=== PATIENT | female | born 2000 | race Caucasian/White ===

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

== ENCOUNTER 2020-04-05 22:23 | Emergency (ER) | payer MEDICAID, SELFPAY ==
[2020-03-04 11:31] VITALS: BMI 20.5
[2020-04-05] VITALS (7 sets, daily range): BP systolic 118–127; BP diastolic 80; PULSE 107–181; RESP 16–22; TEMP 36.6; O2SAT 100; BMI 21.1
[2020-04-05] MEDS: Adenosine 6 MG/2 ML Syringe IV (22:30)
--- NOTE | 2020-04-05 22:38 | ED.RN ---
Addendum entered by Tracy Boyd 04/08/20 04:51: INITIAL IV WAS #20 PLACED IN RIGHT AC BY Mago CHRISTIAN. 2ND IV WAS 20G IN LEFT AC BY Mago CHRISTIAN. Original Note: PT C/O ARM PAIN WHERE IV IS PLACED. 2 RNS AND MD CHECKED FOR INFILTRATION, NO SIGNS. NEW IV STARTED.
[2020-04-05] MEDS: Adenosine 6 MG/2 ML Syringe 12 MG IV ×2 (22:40→22:43)
--- NOTE | 2020-04-05 22:44 | EKG12_ITS ---
Test Reason : REPEAT Blood Pressure : / mmHG Vent. Rate : 106 BPM Atrial Rate : 106 BPM P-R Int : 176 ms QRS Dur : 084 ms QT Int : 312 ms P-R-T Axes : 058 074 035 degrees QTc Int : 414 ms Poor data quality, interpretation may be adversely affected Sinus tachycardia Otherwise normal ECG Confirmed by SONG GALE, CHARLEY ([id number]), greeting card editor MORENO SHANNON ([id number]) on 04/08/2020 10:08:16 AM Referred By: ABIODUN Confirmed By:CHARLEY ZULETA MD
--- NOTE | 2020-04-05 22:46 | ED.VISSUMM ---
- ER Visit Summary Date of Service: 04/05/20 Chief Complaint: Accelerated heart rate and bladder spasms History of Present Illness: The patient is a 19 F no significant past medical history other than anemia. No significant past surgeries. Patient states that she was having bladder discomfort tonight. And developed accelerated heart rate. No prior history of any heart issues. She is never had SVT. There is no family history of dysrhythmias. She denies being ill. She denies any nausea, vomiting or diarrhea. No fever or chills. No chest pain or shortness of breath. No history of DVT or PE. No recent travel, surgery or immobilization. No hemoptysis. No history of prior clots. States her last menstrual period was in March. No change Physical Examination: Well-appearing 19-year-old vital signs are stable except she is in SVT with a heart rate of 175. Initial pressure is 127/80 her pulse ox 9% on room air. HEENT exam unremarkable. Neck nontender no thyromegaly. No lymphadenopathy. Lungs clear to auscultation bilaterally. Heart tachycardic rate about 175 no murmur. Consistent with SVT on the monitor. Abdomen soft nontender normal bowel sounds no peritoneal signs. Extremities moves all 4. Calves nontender without edema or cords. Back nontender. Neurologically she is awake alert with no focal motor deficit. Skin no rashes. Mildly pale. Test Results: Initial EKG on arrival shows a supraventricular tachycardia rate of 175. CBC shows a white count 8. She is chronically anemic her hemoglobin is 9.2. Electrolytes are normal. Normal creatinine and gap. TSH is normal at 1.2. Urinalysis shows 10-25 red cells 10-25 white cells no epithelial cells no bacteria no nitrates a culture was sent due to her bladder discomfort she will be treated for possible UTI. Serum test is negative. A urine culture was sent. I went over all test results with the patient and her father. On repeat exam at 00 19 a.m. she is doing well. Emergency Department Course and Treatment: Patient appears to have new onset SVT. Right antecubital IV was established by the nurses. Nurses told me it flushed well and darlin well. There was good blood flow. Initially gave her 6 of Adenocard with no response whatsoever. She was then given 12 with Adenocard with no response. She was then telling us it was some mild discomfort and her peripheral IV in the right arm. Currently there is no signs of infiltration it does flush well. But I had him change the IV site to the left arm first dose of Adenocard at 12 mg IV on that side she immediately broke the SVT and now is in a normal sinus rhythm. The IV was removed from the right arm. Patient will be given 1 dose of Bactrim here. Treatment Plan: Bactrim twice daily for 5 days for her UTI. Culture sent. Follow-up with cardiology for SVT. Return if feeling worse. Disposition: dc Impression: Acute SVT Acute UTI This note was generated with [employer] dictation software. It may contain incorrect words, spelling, and punctuation that were not noted in review of the chart prior to signing ED Disposition - Plan for ED Patient: Referrals: Inna Moreno NP-C [NON-STAFF] -
--- NOTE | 2020-04-05 22:57 | EKG12_ITS ---
Test Reason : PALPATAIONS Blood Pressure : / mmHG Vent. Rate : 175 BPM Atrial Rate : 163 BPM P-R Int : 000 ms QRS Dur : 076 ms QT Int : 256 ms P-R-T Axes : 000 064 018 degrees QTc Int : 436 ms Supraventricular tachycardia Otherwise normal ECG Confirmed by SONG GALE, CHARLEY ([id number]), offline editor MORENO SHANNON ([id number]) on 04/08/2020 10:08:43 AM Referred By: ABIODUN Confirmed By:CHARLEY ZULETA MD
[2020-04-05 23:02] LABS: Absolute Lymphocyte Count 2.84 X10^3/uL (0.83-4.51); Absolute Neutrophil Count 4.7 X10^3/uL (2.0-7.7); Basophil# 0.06 X10^3/uL; Basophil% 0.7 % (0-1); Eosinophil# 0.19 X10^3/uL; Eosinophils% 2.2 % (0-5); Hematocrit 31.6 % (37-47); Hemoglobin 9.2 g/dL (12.0-15.0); Lymphocyte # 2.84 X10^3/ul (4.0); Mean Corp Hgb Conc 29.1 g/dL (32-36); Mean Corpuscular Hgb 21.4 pg (27.0-32.0); Mean Corpuscular Volume 73.5 fL (81-99); Mean Platelet Vol. 10.7 fl (6.2-12.0); Monocyte# 0.83 X10^3/uL; Monocyte% 9.7 % (0-10); NRBC Flagged by Analyzer 0 % (0-5); Neutrophil # 4.66 X10^3/uL (2.7-7.7); Neutrophil % 54.2 % (47-70); Platelet Count 241 K/mm3 (150-450); RBC Distribution Width CV 15.9 % (11.6-14.6); RBC Distribution Width SD 41.3 fl (35.1-43.9); White Blood Count 8.6 K/mm3 (4.4-11.0)
[2020-04-05 23:39] LABS: Bacteria 0 SEEN /hpf (None Seen); Mucous, Urine 0 SEEN /hpf (<or=2+)
[2020-04-05 23:48] LABS: Color, Urine Yellow (Yellow); Glucose, Dipstick Normal (Normal); Ketone-Dipstick Negative (Negative); Leukocyte Esterase-Dipstick 500 /ul (Negative); Nitrite-Dipstick Negative (Negative); Occult Blood-Urine 150 /ul (Negative); Protein-Dipstick Negative (Negative); Specific Gravity, Urine 1.015 (1.002-1.030); Urine Bilirubin Dipstick Negative (Negative); Urine Clarity Clear (Clear); Urine Urobilinogen Normal (Normal)
[2020-04-05 23:51] LABS: Internal QC Validated? YES +Cl - CLEAR BKGD; Pregnancy, Serum, hCG Quali. NEGATIVE Negative
[2020-04-05 23:56] LABS: Red Blood Cells-Urine 10-25 SEEN /hpf (0-5); Squamous Epithelial Cells - UA 0-5 SEEN /hpf (5-10); White Blood Cells 10-25 SEEN /hpf (0-5)
[2020-04-06 00:08] LABS: Anion Gap 4 (5-15); BUN 13 mg/dL (7-18); BUN/Creat Ratio 15.3 RATIO (10-20); Calcium,Total 8.9 mg/dL (8.5-10.1); Chloride 111 mmol/L (98-107); Creatinine, Serum 0.85 mg/dL (0.55-1.02); EST Glomerular Filtration Rate 91 mL/min (>60); Est Glom Filt Rate - Afr Amer 110 mL/min (>60); Estimated Creatinine Clearance 91.93 ml/min; Glucose 92 mg/dL (74-106); Potassium 3.5 mmol/L (3.5-5.1); Sodium Level 140 mmol/L (136-145); Thyroid Stim Hormone (TSH) 1.29 uIU/mL (0.358-3.74)
--- NOTE | 2020-04-06 00:21 | DCINST.ED_ITS ---
ED Disposition - Plan for ED Patient: Disposition: Home or Assisted Living Instructions: ED CYSTITIS Female Adult Prescriptions: Smz/Tmp Ds [Bactrim Ds] 1 tab PO BID #10 tab Prescription Printed Referrals: Inna Moreno NP-C [NON-STAFF] - 3-5 Days if not improving Kasandra Danielson MD [STAFF PHYSICIAN] - As soon as possible Additional Instructions: You have a heart rhythm called SVT or supraventricular tachycardia. This can often be treated with either medication or sometimes they can do an ablation where they go in and shocked that area of the heart to prevent this from happening again. You will need to follow-up with cardiology to have that further evaluated. Your urine had white and red blood cells that are consistent with a urinary tract infection. A urine culture was sent. He will be started on the antibiotic Bactrim 1 pill twice a day for the next 5 days. Follow-up with your nurse practitioner if not improving. Make sure you follow- up with generation engineering technologist for your SVT.
[2020-04-06] MEDS: Smz/Tmp Ds Tablet 1 TABLET PO (00:30)
[2020-04-06 00:33] VITALS: BP 105/60; PULSE 90; RESP 18; O2SAT 96
== END 2020-04-06 00:34 | disposition home or self-care (01) ==
PROVIDERS: Emergency Provider Emergency Medicine
DX: I47.1 Supraventricular tachycardia (principal); N39.0 Urinary tract infection, site not specified; F17.200 Nicotine dependence, unspecified, uncomplicated
CPT/HCPCS: 80048; 81001; 84443; 84703; 85025; 87086; 87088; 93005; 96374; 96376; 99285; J7030; A4216; J0153

== ENCOUNTER 2020-06-06 17:57 | Emergency (ER) | payer MEDICAID, SELFPAY ==
[2020-05-11 11:26] VITALS: BMI 20.5
[2020-06-06 17:59] VITALS: BP 122/68; PULSE 91; RESP 18; TEMP 37.1; O2SAT 96; BMI 20.9
--- NOTE | 2020-06-06 18:19 | ED.VIS.GEN ---
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 she has no complaints other than some rhinorrhea eating and drinking well no obvious documented fever Only came to the emergency department because of the issues related to work as above did not know where else to go to get tested Past Medical History - Allergies and Home Meds Allergies/Adverse Reactions: Allergies No Known Allergies Allergy (Verified 06/06/20 17:59) Primary Care Physician: Care Physician,No Primary [Primary Care Provider] - Past Medical History: None Smoking Status: Current every day smoker Review of Systems ENT: Reports: Rhinorrhea Physical Exam Vital Signs/Narrative: Vital Signs Temp Pulse Resp BP Pulse Ox 06/06/20 17:59 98.7 F 91 18 122/68 H 96 General: Well nourished, Well developed, No Acute Distress Head: Normocephalic, Atraumatic Eyes: Perrl, EOMI ENT: Moist mucous membranes, No rhinorrhea Neck: Supple, Nontender Cardiovascular: Regular rate, Regular rhythm, No murmurs Respiratory: No distress, CTA bilaterally, Chest nontender Abdomen: Soft, Nontender, Nondistended, Normal bowel sounds Back: Nontender, Normal Inspection Extremities: Nontender, No edema Skin: Normal color, No rash Neurological: Alert, Oriented x3, Cranial nerves II-XII grossly intact, Normal Strength, Normal Sensation Psychological: Normal affect, Normal Mood Diagnostic/Tx/Re-eval - Medical Decision Making The vital signs are unremarkable patient is afebrile pulse ox is 96% clinically she looks well given all of the above related to the above and work issues we will obtain outpatient coronavirus screening she understands that test is not available for a few days she will self isolate use instructions return for change in symptoms Home stable Final impression URI concern for coronavirus ED Disposition - Plan for ED Patient: Diagnosis: COVID-19 Instructions: ED Bronchitis, No Antibiotic (Adult), Coronavirus Disease 2019 (COVID-19): Caring for Yourself or Others Referrals: Care Physician,No Primary [Primary Care Provider] - Additional Instructions: Follow coronavirus instruction sheet
== END 2020-06-06 18:35 | disposition home or self-care (01) ==
PROVIDERS: Emergency Provider Emergency Medicine
DX: U07.1 COVID-19 (principal); F17.200 Nicotine dependence, unspecified, uncomplicated
CPT/HCPCS: 87635; 99282; U0003

== ENCOUNTER 2020-08-27 22:22 | Emergency (ER) | payer MEDICAID, SELFPAY ==
[2020-08-27 22:23] VITALS: BP 125/70; PULSE 100; RESP 18; TEMP 35.8; O2SAT 98; BMI 21.4
--- NOTE | 2020-08-27 22:35 | EKG12_ITS ---
Test Reason : DYSRHYTHMIA Blood Pressure : / mmHG Vent. Rate : 073 BPM Atrial Rate : 073 BPM P-R Int : 138 ms QRS Dur : 084 ms QT Int : 348 ms P-R-T Axes : 003 063 033 degrees QTc Int : 383 ms Normal sinus rhythm Normal ECG Confirmed by SIMON GALE, SUJATHA ([id number]), administration intern MORENO SHANNON ([id number]) on 08/31/2020 10:00:01 AM Referred By: KEM Confirmed By:RAQUEL MONTES MD
--- NOTE | 2020-08-27 22:41 | ED.VIS.GEN ---
History of Present Illness Chief Complaint: General Illness Informant: Patient Onset: Today Context: Gradual Onset Timing: Continuous Current Severity: Moderate Maximum Severity: Moderate Narrative: The patient is a 20-year-old female who presents to the emergency department with nausea and vaginal bleeding. Patient states that it started around 3 PM. She states she felt nauseated had some abdominal cramping. She states she is also been having intermittent palpitations. She states that she felt like she was going to pass out. She did notice she had some scant vaginal bleeding. She is on Depakote. She states she normally does not have regular menstrual periods. She denies fevers or chills. She denies orthopnea. She states she is otherwise been in her normal state of health. Prior similar symptoms: No Recent Illness/Hospitalization: No Past Medical History - Allergies and Home Meds Allergies/Adverse Reactions: Allergies No Known Allergies Allergy (Verified 08/27/20 22:59) Primary Care Physician: Care Physician,No Primary [Primary Care Provider] - Prior records reviewed: Yes Past Medical History: None Surgical History: noncontributory Smoking Status: Current some day smoker Review of Systems General: Denies: Chills, Fever, Sweats Eyes: Denies: Visual changes - bilaterally, Diplopia ENT: Denies: Rhinorrhea, Sore throat Cardiovascular: Reports: Chest pain. Denies: Palpitations Respiratory: Denies: Dyspnea, Cough, Dyspnea on exertion Gastrointestinal: Reports: Nausea. Denies: Abdominal pain, Vomiting, Diarrhea, Melena, Hematochezia Genitourinary: Denies: Dysuria, Hematuria, Frequency Musculoskeletal: Denies: Back pain, Extremity Pain Skin: Denies: Rash, Wounds Neurological: Denies: Headache, Weakness, Numbness Physical Exam Vital Signs/Narrative: Vital Signs Temp Pulse Resp BP Pulse Ox 08/27/20 22:23 96.4 F L 100 18 125/70 H 98 Inital Vital Signs reviewed: Yes General: Well nourished, Well developed, No Acute Distress Head: Normocephalic, Atraumatic Eyes: Perrl, EOMI ENT: Moist mucous membranes, No rhinorrhea Neck: Supple, Nontender Cardiovascular: Regular rate, Regular rhythm, No murmurs Respiratory: No distress, CTA bilaterally, Chest nontender Abdomen: Soft, Nontender, Nondistended, Normal bowel sounds Back: Nontender, Normal Inspection Extremities: Nontender, No edema Skin: Normal color, No rash Neurological: Alert, Oriented x3, Cranial nerves II-XII grossly intact, Normal Strength, Normal Sensation Psychological: Normal affect, Normal Mood Diagnostic/Tx/Re-eval Clinical Impression(s) from Imaging Studies Chest X-Ray 08/27/20 23:05 IMPRESSION: Normal x-ray examination of the chest. Electronically Signed: Phi Rodriguez MD at 23:15 EST , Service support , Abnormal Lab Results 08/27/20 08/27/20 08/27/20 22:50 22:52 22:52 WBC 7.1 RBC 4.67 Hgb 10.8 L Hct 36.8 L MCV 78.8 L MCH 23.1 L MCHC 29.3 L RDW Std Deviation 49.6 H RDW Coeff of Yaquelin 17.7 H Plt Count 205 MPV 10.5 Immature Gran % (Auto) 0.300 Neut % (Auto) 44.5 L Lymph % (Auto) 38.3 Harper % (Auto) 10.6 H Eos % (Auto) 5.5 H Baso % (Auto) 0.8 Absolute Neuts (auto) 3.1 Absolute Lymphs (auto) 2.71 Nucleated RBC % 0 Sodium 140 Potassium 4.0 Chloride 110 H Carbon Dioxide 26.0 Anion Gap 4 L BUN 15 Creatinine 0.76 Estim Creat Clear Calc 101.96 Est GFR (MDRD) Af Amer 125 Est GFR (MDRD) Non-Af 103 BUN/Creatinine Ratio 19.8 Glucose 93 Calcium 9.1 Total Bilirubin 0.20 AST 12 L ALT 20 Alkaline Phosphatase 84 Total Protein 7.7 Albumin 4.0 Globulin 3.7 Albumin/Globulin Ratio 1.1 Urine Color Yellow Urine Clarity Clear Urine pH 7.0 Ur Specific [place] 1.015 Urine Protein 30 H Urine Glucose (UA) Normal Urine Ketones 5 H Urine Occult Blood 250 H Urine Nitrite Negative Urine Bilirubin Negative Urine Urobilinogen Normal Ur Leukocyte Esterase 100 H Urine RBC 0-5 SEEN Urine WBC 5-10 SEEN Ur Squamous Epith Cells 0-5 SEEN Urine Bacteria 0 SEEN Urine Mucus 0 SEEN Urine Test Negative - Medical Decision Making Patient presents with multiple generalized symptoms. Her abdomen is soft and nontender. She did admit to some increased urinary frequency. Metabolic work-up was pursued. Patient is non. She has a stable chronic anemia. Orthostatics were negative. She was given fluids and Zofran with improvement. EKG was obtained. Was sinus rhythm without evidence of ischemia or prolonged QT. On reevaluation, the patient is resting comfortably. Her chest x-ray reviewed by myself shows no evidence of enlarged cardiac silhouette, pneumothorax, or other dangerous process. At this point, the patient will be treated with Macrobid. I will also write her for some Zofran to help with her nausea. She will be discharged home. Impression 1. Nausea 2. Cystitis ED Disposition - Plan for ED Patient: Instructions: ED Bladder Infection, Female (Adult) Prescriptions: Nitrofurantoin Macrocrystals [Macrobid] 100 mg PO Q12 #10 cap Prescription Printed Ondansetron [Zofran Odt] 4 mg PO Q8H PRN PRN #10 tab PRN Reason: Nausea Prescription Printed Referrals: Care Physician,No Primary [Primary Care Provider] -
[2020-08-27] MEDS: Ondansetron 4 MG/2 ML Vial IV (22:51)
[2020-08-27] MEDS: 0.9% Normal Saline 1,000 ML 1000 ML IV (22:51)
[2020-08-27 22:54] VITALS: BP 113/68; BP 115/73; BP 130/79; PULSE 74; PULSE 77; PULSE 79
[2020-08-27 22:57] LABS: Bacteria 0 SEEN /hpf (None Seen); Mucous, Urine 0 SEEN /hpf (<or=2+)
[2020-08-27 22:58] LABS: Color, Urine Yellow (Yellow); Glucose, Dipstick Normal (Normal); Ketone-Dipstick 5 mg/dl (Negative); Leukocyte Esterase-Dipstick 100 /ul (Negative); Nitrite-Dipstick Negative (Negative); Occult Blood-Urine 250 /ul (Negative); Protein-Dipstick 30 mg/dl (Negative); Specific Gravity, Urine 1.015 (1.002-1.030); Urine Bilirubin Dipstick Negative (Negative); Urine Clarity Clear (Clear); Urine Urobilinogen Normal (Normal)
[2020-08-27 23:00] LABS: Absolute Lymphocyte Count 2.71 X10^3/uL (0.83-4.51); Absolute Neutrophil Count 3.1 X10^3/uL (2.0-7.7); Basophil# 0.06 X10^3/uL; Basophil% 0.8 % (0-1); Eosinophil# 0.39 X10^3/uL; Eosinophils% 5.5 % (0-5); Hematocrit 36.8 % (37-47); Hemoglobin 10.8 g/dL (12.0-15.0); Lymphocyte # 2.71 X10^3/ul (4.0); Lymphocyte % 38.3 % (19-41); Mean Corp Hgb Conc 29.3 g/dL (32-36); Mean Corpuscular Hgb 23.1 pg (27.0-32.0); Mean Corpuscular Volume 78.8 fL (81-99); Mean Platelet Vol. 10.5 fl (6.2-12.0); Monocyte# 0.75 X10^3/uL; Monocyte% 10.6 % (0-10); NRBC Flagged by Analyzer 0 % (0-5); Neutrophil # 3.14 X10^3/uL (2.7-7.7); Neutrophil % 44.5 % (47-70); Platelet Count 205 K/mm3 (150-450); RBC Distribution Width CV 17.7 % (11.6-14.6); RBC Distribution Width SD 49.6 fl (35.1-43.9); Red Blood Count 4.67 M/mm3 (4.2-5.4); White Blood Count 7.1 K/mm3 (4.4-11.0)
[2020-08-27 23:03] LABS: Squamous Epithelial Cells - UA 0-5 SEEN /hpf (5-10)
[2020-08-27 23:04] LABS: Internal QC Validated? YES +Cl - CLEAR BKGD; Pregnancy, Urine Negative Negative; Red Blood Cells-Urine 0-5 SEEN /hpf (0-5); White Blood Cells 5-10 SEEN /hpf (0-5)
--- NOTE | 2020-08-27 23:05 | RAD_ITS ---
STUDY: X-RAY CHEST REASON FOR EXAM: Female, 20 years old. sob TECHNIQUE: Single AP portable view of the chest. COMPARISON: None. FINDINGS: The lungs are clear and expanded. There is no demonstrated pleural abnormality. Normal size heart. Normal mediastinum and natalie. Normal visualized pulmonary arteries. Normal visualized aortic arch and descending thoracic aorta. Normal visualized thoracic spine. Normal visualized ribs, clavicles, and shoulders. There is no demonstrated abnormality of the visualized soft tissue structures of the upper abdomen. RAD/Chest 1 View (Portable) IMPRESSION: Normal x-ray examination of the chest. Electronically Signed: Phi Rodriguez MD at 23:15 EST , Service support ,
[2020-08-27 23:17] LABS: ALB/GLOB Ratio 1.1 RATIO (0.9-2.4); AST(SGOT) 12 U/L (15-37); Alanine Aminotransfer ALT/SGPT 20 U/L (13-56); Alkaline Phosphatase 84 U/L (45-117); Anion Gap 4 (5-15); BUN 15 mg/dL (7-18); BUN/Creat Ratio 19.8 RATIO (10-20); Calcium,Total 9.1 mg/dL (8.5-10.1); Chloride 110 mmol/L (98-107); Creatinine, Serum 0.76 mg/dL (0.55-1.02); EST Glomerular Filtration Rate 103 mL/min (>60); Est Glom Filt Rate - Afr Amer 125 mL/min (>60); Estimated Creatinine Clearance 101.96 ml/min; Globulin 3.7 g/dL (2.2-4.2); Glucose 93 mg/dL (74-106); Protein, Total 7.7 g/dL (6.4-8.2); Sodium Level 140 mmol/L (136-145)
[2020-08-27 23:25] VITALS: BP 117/63; PULSE 84; RESP 18; O2SAT 100
[2020-08-27] MEDS: Nitrofurantoin Macrocrystals 100 MG Capsule PO (23:25)
== END 2020-08-27 23:31 | disposition home or self-care (01) ==
LOC: ED 22:56
PROVIDERS: Emergency Provider Emergency Medicine
DX: R11.0 Nausea (principal); N30.90 Cystitis, unspecified without hematuria
CPT/HCPCS: 71045; 80053; 81001; 81025; 85025; 93005; 96374; 99285; J7030; A4216; J2405

== ENCOUNTER 2020-09-12 23:10 | Emergency (ER) | payer MEDICAID, SELFPAY ==
[2020-09-12 23:11] VITALS: BP 125/62; PULSE 95; RESP 16; TEMP 36.2; O2SAT 99; BMI 21.5
--- NOTE | 2020-09-12 23:33 | ED.VIS.GI ---
History of Present Illness Chief Complaint: Abd Pain Narrative: Patient presenting for evaluation secondary to abdominal pain. Patient is presenting complaining of lower abdominal pain. She states is been going on over the course of the last 24 hours. Will migrate from the left to the right. It has no relieving factors, she states that it is somewhat worse with palpation. Patient denies any fevers, nausea vomiting diarrhea. She denies any dysuria or hematuria. She does report that she gets intermittent vaginal spotting but is on Depo-Provera. She denies any vaginal discharge. Patient denies any new sexual partners. No history of abdominal surgeries in the past. Review of systems otherwise negative. Past Medical History - Allergies and Home Meds Allergies/Adverse Reactions: Allergies No Known Allergies Allergy (Verified 09/12/20 23:13) Primary Care Physician: Care Physician,No Primary [Primary Care Provider] - Prior records reviewed: Yes Past Medical History: - - Past history of a uncomplicated vaginal approximately 2 years ago Surgical History: noncontributory Smoking Status: Current some day smoker Review of Systems All systems negative except as indicated General: Denies: Chills, Fever, Sweats Eyes: Denies: Visual changes - bilaterally, Diplopia ENT: Denies: Rhinorrhea, Sore throat Cardiovascular: Denies: Chest pain, Palpitations Respiratory: Denies: Dyspnea, Cough, Dyspnea on exertion Gastrointestinal: Reports: Abdominal pain Genitourinary: Denies: Dysuria, Hematuria, Frequency Musculoskeletal: Denies: Back pain, Extremity Pain Skin: Denies: Rash, Wounds Neurological: Denies: Headache, Weakness, Numbness Physical Exam Vital Signs/Narrative: Vital Signs Temp Pulse Resp BP Pulse Ox 09/12/20 23:11 97.2 F L 95 16 125/62 H 99 Inital Vital Signs reviewed: Yes General: Well nourished, Well developed, No Acute Distress Head: Normocephalic, Atraumatic Eyes: Perrl, EOMI ENT: Moist mucous membranes, No rhinorrhea Neck: Supple, Nontender Cardiovascular: Regular rate, Regular rhythm, No murmurs Respiratory: No distress, CTA bilaterally, Chest nontender Abdomen: Soft, Nontender, Nondistended, Normal bowel sounds, - - Patient complains of pain in the lower abdomen but this is really not reproducible on palpation no evidence of guarding or rebound tenderness Back: Nontender, Normal Inspection Extremities: Nontender, No edema Skin: Normal color, No rash Neurological: Alert, Oriented x3, Cranial nerves II-XII grossly intact, Normal Strength, Normal Sensation Psychological: Normal affect, Normal Mood Diagnostic/Tx/Re-eval Laboratory Data 09/12/20 09/12/20 09/12/20 00:03 23:35 23:35 WBC 7.1 RBC 4.63 Hgb 11.3 L Hct 36.7 L MCV 79.3 L MCH 24.4 L MCHC 30.8 L RDW Std Deviation 52.9 H RDW Coeff of Yaquelin 21.2 H Plt Count 176 MPV 11.0 Immature Gran % (Auto) 0.300 Neut % (Auto) 48.2 Lymph % (Auto) 36.3 [place] % (Auto) 9.8 Eos % (Auto) 5.0 Baso % (Auto) 0.4 Absolute Neuts (auto) 3.4 Absolute Lymphs (auto) 2.56 Nucleated RBC % 0 Sodium 142 Potassium 3.4 L Chloride 109 H Carbon Dioxide 27.0 Anion Gap 6 BUN 12 Creatinine 0.73 Estim Creat Clear Calc 106.15 Est GFR (MDRD) Af Amer 131 Est GFR (MDRD) Non-Af 108 BUN/Creatinine Ratio 16.5 Glucose 81 Calcium 8.8 Urine Color Yellow Urine Clarity Clear Urine pH 6.0 Ur Specific [place] 1.030 Urine Protein 30 H Urine Glucose (UA) Normal Urine Ketones Negative Urine Occult Blood 25 H Urine Nitrite Negative Urine Bilirubin Negative Urine Urobilinogen Normal Ur Leukocyte Esterase 25 H Urine RBC 0-5 SEEN Urine WBC 0-5 SEEN Ur Squamous Epith Cells 0-5 SEEN Urine Bacteria 0 SEEN Urine Mucus 0 SEEN Urine Test Negative - Medical Decision Making Patient presented secondary to lower abdominal pain. IV was established laboratory studies were obtained. CBC shows a microcytic anemia, chemistry unremarkable. Urinalysis shows no signs of infection. Patient had a negative test. She was given Toradol in the emergency department she had improvement of her symptoms on repeat evaluation. Patient exhibited concern to me upon reevaluation of the possibility of a sexually transmitted infection causing her discomfort. Intervention Teacher pelvic exam was performed. Patient had normal external genitalia with no lesions. She has a mild amount of reddish spotting. Her cervix appears normal with no cervicitis. No adnexal masses. Patient did have some mild uterine tenderness on palpation but no obvious masses. No cervical motion tenderness. GC and Chlamydia was sent as well as a wet prep but the patient's physical exam really does not seem consistent with that of cervicitis or pelvic inflammatory disease I do not feel that empiric treatment is necessary at this time. Patient's pain likely is associated with her vaginal spotting, she will be given WATER CHASER with which to follow-up. She was educated on signs and symptoms which to return. Patient was discharged in improved condition. ED Disposition - Plan for ED Patient: Disposition: Home or Assisted Living Diagnosis: Pelvic pain Instructions: ED Pelvic Pain, Unknown Cause Referrals: Savannah Schneider DO [STAFF PHYSICIAN] - 1 Week if not improving
[2020-09-12] MEDS: Ketorolac 15 MG/ML Vial IV (23:38)
[2020-09-12 23:41] LABS: Absolute Lymphocyte Count 2.56 X10^3/uL (0.83-4.51); Absolute Neutrophil Count 3.4 X10^3/uL (2.0-7.7); Basophil# 0.03 X10^3/uL; Basophil% 0.4 % (0-1); Eosinophil# 0.35 X10^3/uL; Hematocrit 36.7 % (37-47); Hemoglobin 11.3 g/dL (12.0-15.0); Lymphocyte # 2.56 X10^3/ul (4.0); Lymphocyte % 36.3 % (19-41); Mean Corp Hgb Conc 30.8 g/dL (32-36); Mean Corpuscular Hgb 24.4 pg (27.0-32.0); Mean Corpuscular Volume 79.3 fL (81-99); Monocyte# 0.69 X10^3/uL; Monocyte% 9.8 % (0-10); NRBC Flagged by Analyzer 0 % (0-5); Neutrophil # 3.41 X10^3/uL (2.7-7.7); Neutrophil % 48.2 % (47-70); POSITIVE MORPHOLOGY YES; Platelet Count 176 K/mm3 (150-450); RBC Distribution Width CV 21.2 % (11.6-14.6); RBC Distribution Width SD 52.9 fl (35.1-43.9); Red Blood Count 4.63 M/mm3 (4.2-5.4); White Blood Count 7.1 K/mm3 (4.4-11.0)
[2020-09-12 23:44] LABS: Differential Indicated SCAN CRITERIA MET
[2020-09-12 23:54] LABS: Anion Gap 6 (5-15); BUN 12 mg/dL (7-18); BUN/Creat Ratio 16.5 RATIO (10-20); Calcium,Total 8.8 mg/dL (8.5-10.1); Chloride 109 mmol/L (98-107); Creatinine, Serum 0.73 mg/dL (0.55-1.02); EST Glomerular Filtration Rate 108 mL/min (>60); Est Glom Filt Rate - Afr Amer 131 mL/min (>60); Estimated Creatinine Clearance 106.15 ml/min; Glucose 81 mg/dL (74-106); Potassium 3.4 mmol/L (3.5-5.1); Sodium Level 142 mmol/L (136-145)
[2020-09-13 00:08] LABS: Bacteria 0 SEEN /hpf (None Seen); Mucous, Urine 0 SEEN /hpf (<or=2+)
[2020-09-13 00:14] LABS: Color, Urine Yellow (Yellow); Glucose, Dipstick Normal (Normal); Ketone-Dipstick Negative (Negative); Leukocyte Esterase-Dipstick 25 /ul (Negative); Nitrite-Dipstick Negative (Negative); Occult Blood-Urine 25 /ul (Negative); Protein-Dipstick 30 mg/dl (Negative); Urine Bilirubin Dipstick Negative (Negative); Urine Clarity Clear (Clear); Urine Urobilinogen Normal (Normal)
[2020-09-13 00:16] LABS: Internal QC Validated? YES +Cl - CLEAR BKGD; Pregnancy, Urine Negative Negative
[2020-09-13 00:18] LABS: Red Blood Cells-Urine 0-5 SEEN /hpf (0-5); Squamous Epithelial Cells - UA 0-5 SEEN /hpf (5-10); White Blood Cells 0-5 SEEN /hpf (0-5)
[2020-09-13 03:24] LABS: Chlamydia Trachomatis by PCR Negative (Negative); Neisserai gonorrhoeae by PCR Negative (Negative); Probe Check PASS; Sample Adequacy Control PASS; Specimen Processing Control PASS
== END 2020-09-13 00:59 | disposition home or self-care (01) ==
PROVIDERS: Emergency Provider Emergency Medicine
DX: R10.2 Pelvic and perineal pain (principal); F17.200 Nicotine dependence, unspecified, uncomplicated
CPT/HCPCS: 80048; 81001; 81025; 85025; 87491; 87591; 96374; 99283; A4216

== ENCOUNTER → 2020-12-03 16:39 | Outpatient (CLI) | payer MEDICAID, SELFPAY ==
[2020-12-03 16:59] LABS: Hematocrit 42.5 % (37-47); Hemoglobin 14.3 g/dL (12.0-15.0); Mean Corp Hgb Conc 33.6 g/dL (32-36); Mean Corpuscular Hgb 29.5 pg (27.0-32.0); Mean Corpuscular Volume 87.8 fL (81-99); Mean Platelet Vol. 11.3 fl (6.2-12.0); Platelet Count 182 K/mm3 (150-450); RBC Distribution Width CV 15.9 % (11.6-14.6); Red Blood Count 4.84 M/mm3 (4.2-5.4); White Blood Count 8.7 K/mm3 (4.4-11.0)
[2020-12-03 18:41] LABS: ALB/GLOB Ratio 1.1 RATIO (0.9-2.4); AST(SGOT) 12 U/L (15-37); Alanine Aminotransfer ALT/SGPT 17 U/L (13-56); Albumin, Serum 3.8 g/dL (3.2-5.0); Alkaline Phosphatase 87 U/L (45-117); Anion Gap 6 (5-15); BUN 9 mg/dL (7-18); BUN/Creat Ratio 15.1 RATIO (10-20); Calcium,Total 8.9 mg/dL (8.5-10.1); Chloride 106 mmol/L (98-107); EST Glomerular Filtration Rate 136 mL/min (>60); Est Glom Filt Rate - Afr Amer 164 mL/min (>60); Globulin 3.4 g/dL (2.2-4.2); Glucose 82 mg/dL (74-106); Luteinizing Hormone 1.9 mIU/mL; Potassium 3.7 mmol/L (3.5-5.1); Prolactin 7.5 ng/mL; Protein, Total 7.2 g/dL (6.4-8.2); Sodium Level 140 mmol/L (136-145); T4 Free Direct 0.92 ng/dL (0.76-1.46)
[2020-12-08 15:26] LABS: Testosterone Free 0.6 pg/mL (0.0-4.2)
== END ==
PROVIDERS: Visit Provider Obstetrics & Gynecology
DX: N93.9 Abnormal uterine and vaginal bleeding, unspecified (principal)
CPT/HCPCS: 36415; 80053; 83001; 83002; 84146; 84402; 84439; 84443; 85027; 87086; 87088

== ENCOUNTER 2021-01-11 21:19 | Emergency (ER) | payer MEDICAID, SELFPAY ==
[2021-01-11 21:21] VITALS: BP 113/62; PULSE 83; RESP 15; TEMP 36.6; O2SAT 97; BMI 21.1
[2021-01-11 21:22] VITALS: BP 113/62; PULSE 83; RESP 15; TEMP 36.6; O2SAT 97
--- NOTE | 2021-01-11 22:10 | ED.VIS.DENTA ---
HPI History of Present Illness Chief Complaint: Dental Informant: patient Onset/Context/Timing Onset: Today Context: Gradual Onset Timing: Continuous Quality: Throbbing Location: Right lower molars Worsened by: Nothing Relieved by: - (Nothing) Associated Symptoms Assocated Symptom - Dental: jaw swelling; Negative for fever, face swelling, cold sensitivity or hot sensitivity Narrative Narrative: Patient presents with right lower dental pain that has been getting worse over the past 3 days. Patient describes her pain as throbbing. Patient states pain is over the right lower molar area. Patient states she feels some swelling over the right lower jaw. Patient states nothing makes her pain better or worse. Patient denies any hot or cold sensitivity. Patient states she called her dentist who referred her to the emergency department because they were unable to get her into the office until next week. [facility] Medical History Anemia Costal chondritis COVID-19 Dysmenorrhea Family history of coronary artery disease Nicotine dependence Supraventricular tachycardia (04/2020) Home Medications ferrous sulfate 325 mg (65 mg iron) tablet 325 mg PO DAILY 03/03/20 [History Last Taken Unknown] medroxyprogesterone 150 mg/mL intramuscular suspension 150 mg IM [id number] 03/03/20 [History Last Taken Unknown] nitrofurantoin monohyd/m-cryst 100 mg PO Q12 #10 cap 08/27/20 [Rx Last Taken Unknown] ondansetron 4 mg PO Q8H PRN PRN #10 tab 08/27/20 [Rx Last Taken Unknown] amoxicillin 500 mg PO TID #30 tab 01/11/21 [Rx Last Taken Unknown] Allergy/AdvReac Type Severity Reaction Status Date / Time No Known Allergies Allergy Verified 09/12/20 23:13 Family History (Reviewed 05/11/20 @ 11:29 by Dwain Francois RADIOTELEPHONE OPERATOR, RADIOTELEPHONE OPERATOR-C) Father CAD (coronary artery disease) coronary stents, CMP, Stent RCA Myocardial infarction, Onset Age: 34 Heart disease [place] CMP Uncle Myocardial infarction CAD (coronary artery disease) Grandmother CAD (coronary artery disease) Myocardial infarction Social History Smoking Status: Current every day smoker tobacco type: cigarettes ROS ROS ED Constitutional Constitutional ED: Denies chills or fever(s) Eyes Eyes: Denies blurry vision or change in vision ENT ENT ED: Denies rhinorrhea or sore throat Cardiovascular Cardiovascular: Denies chest pain or palpitations Respiratory/Chest Respiratory/Chest: Denies cough or dyspnea Gastrointestinal Gastrointestinal: Denies nausea or vomiting Genitourinary Genitourinary ED: Denies dysuria or hematuria Musculoskeletal Musculoskeletal: Reports back pain; Denies neck pain Integumentary Denies abscess or rash Neurologic Neurologic: Denies headache(s) or weakness Allergic/Immunologic Allergic/Immunologic ED: Denies mouth swelling or urticaria EXAM Physical Exam Const Vital Signs: 01/11/21 21:21 01/11/21 21:22 Temperature 97.9 F 97.9 F Temperature Source Temporal Temporal Pulse Rate 83 83 Respiratory Rate 15 15 Blood Pressure 113/62 113/62 Blood Pressure Mean 79 79 Pulse Ox 97 97 Oxygen Delivery Method Room Air Room Air Positive well nourished and well developed General Appearance ED: well developed HEENT Teeth and Gingiva: caries and gingiva abnormal Positive for gingival edema Eyes PERRL Neck supple and no JVD General: Negative for anterior neck swelling or submandibular swelling Lymph Lymphatic: no lymphadenopathy noted Neuro oriented x3, CN's II-XII intact bilaterally, moves all extremities, no focal motor deficits and no sensory deficits noted Sensorium / Orientation: alert Psych mental status grossly normal MDM MDM MDM Narrative Medical decision making narrative: There is tenderness and mild gingival edema over the right lower third molar. There is no fluctuance or evidence of any abscess. There is no sublingual edema or evidence of Donald's angina. Patient was given a dose of amoxicillin here. Patient was given a prescription for amoxicillin. Patient was instructed to follow-up with her dentist in 5 to 7 days. Patient understood and was agreeable with the plan. All questions were answered. Discharge Plan Triage Chief Complaint: Dental ED Provider: Michael Rojas Dx/Rx/DC Orders Clinical Impression: Odontalgia Instructions: ED Dental Pain Prescriptions: New amoxicillin 500 MG tablet 500 mg PO TID Qty: 30 RF: 0 No Action ferrous sulfate 325 mg (65 mg iron) tablet 325 mg PO DAILY RF: 0 medroxyprogesterone [Depo-Provera] 150 mg/mL suspension 150 mg IM [id number] RF: 0 ondansetron 4 MG tablet 4 mg PO Q8H PRN PRN (Reason: Nausea) Qty: 10 RF: 0 nitrofurantoin monohyd/m-cryst 100 MG capsule 100 mg PO Q12 Qty: 10 RF: 0 Primary Care Provider: Care Physician,No Primary Referrals: Care Physician,No Primary [Primary Care Provider] - Dentist,Your [STAFF PHYSICIAN] - 3-5 Days Disposition Disposition: Home, Self Care
[2021-01-11] MEDS: AMOXICILLIN 500 MG CAPSULE PO (22:24)
[2021-01-11 22:29] VITALS: RESP 16
== END 2021-01-11 22:29 | disposition home or self-care (01) ==
PROVIDERS: Emergency Provider Emergency Medicine
DX: K08.89 Other specified disorders of teeth and supporting structures (principal); F17.210 Nicotine dependence, cigarettes, uncomplicated
CPT/HCPCS: 99283

== ENCOUNTER → 2021-03-29 13:21 | Outpatient (CLI) | payer MEDICAID, SELFPAY | PROVIDERS: Visit Provider Obstetrics & Gynecology | DX: N39.0 Urinary tract infection, site not specified (principal) | CPT/HCPCS: 87086; 87088 ==

== ENCOUNTER → 2021-04-07 08:08 | Outpatient (CLI) | payer MEDICAID, SELFPAY ==
--- NOTE | 2021-04-07 08:10 | US_ITS ---
EXAM: US ABDOMEN COMPLETE : 2000 CLINICAL INDICATION: Abdominal Pain -- Patient is four weeks TECHNIQUE: Real-time ultrasound of the abdomen with image documentation. This report was created using [employer] report C2C Link technology. COMPARISON: None. FINDINGS: LIVER: The liver measures 16.2 cm. There is normal echotexture. No intrahepatic biliary ductal dilation. GALLBLADDER: The gallbladder wall measures 2 mm. There is minimal debris in the gallbladder which may represent sludge. No shadowing gallstone. No pericholecystic fluid. Negative sonographic Dominguez's sign. COMMON BILE DUCT: The common bile duct measures 3 mm. The proximal common bile duct is within normal limits for the patient's age. PANCREAS: Unremarkable as visualized. No focal abnormality is demonstrated in the pancreas. No pancreatic ductal dilatation. KIDNEYS: The right kidney measures 11.1 x 4.8 x 5.6 cm. The left kidney measures 12.0 x 5.6 x 4.9 cm. There is no hydronephrosis. No shadowing calculus. No focal lesion or perinephric collection is demonstrated. SPLEEN: The spleen measures 9.3 cm. AORTA: Proximal aorta measures 1.4 cm, the mid aorta measures 0.9 cm in the distal aorta measures 0.8 cm. INFERIOR VENA CAVA: Unremarkable. The IVC is patent. FREE FLUID: There is no free fluid. OTHER FINDINGS: The left iliac is 0.7 cm in the right iliac measures 0.7 cm. US/Abdomen Complete IMPRESSION: Minimal debris in the gallbladder possibly representing sludge. There is no evidence of cholelithiasis or cholecystitis. No other abnormalities identified. at 1656 Reported and signed by: Mike Swanson MD Electronically Signed: Mike Swanson MD at 16:54 EDT Tel , Service support ,
== END ==
PROVIDERS: Referring Provider Internal Medicine Gastroenterology; Visit Provider Internal Medicine Gastroenterology
DX: R10.9 Unspecified abdominal pain (principal)
CPT/HCPCS: 76700

== ENCOUNTER 2021-04-11 09:11 | Emergency (ER) | payer MEDICAID, SELFPAY ==
[2021-04-11 09:11] VITALS: BP 102/74; PULSE 96; RESP 16; TEMP 36.6; O2SAT 97; BMI 21.6
[2021-04-11 09:39] VITALS: PULSE 95; RESP 16
--- NOTE | 2021-04-11 09:40 | EKG12_ITS ---
Test Reason : Blood Pressure : / mmHG Vent. Rate : 087 BPM Atrial Rate : 087 BPM P-R Int : 172 ms QRS Dur : 090 ms QT Int : 340 ms P-R-T Axes : 042 067 041 degrees QTc Int : 409 ms Normal sinus rhythm Normal ECG Confirmed by SONG GALE, CHARLEY ([id number]), restaurant expeditor MORENO SHANNON ([id number]) on 04/12/2021 12:55:06 PM Referred By: RICHA Confirmed By:CHARLEY ZULETA MD
[2021-04-11] MEDS: 0.9% Normal Saline 1,000 ML 1000 ML IV (09:46)
--- NOTE | 2021-04-11 09:52 | RAD_ITS ---
STUDY: X-RAY CHEST REASON FOR EXAM: Female, 21 years old. Palpitations TECHNIQUE: Single AP portable view of the chest. COMPARISON: 08/27/2020 FINDINGS: The lungs are clear and expanded. There is no demonstrated pleural abnormality. Normal size heart. Normal mediastinum and natalie. Normal visualized pulmonary arteries. Normal visualized aortic arch and descending thoracic aorta. Normal visualized thoracic spine. Normal visualized ribs, clavicles, and shoulders. There is no demonstrated abnormality of the visualized soft tissue structures of the upper abdomen. RAD/Chest 1 View (Portable) IMPRESSION: Normal x-ray examination of the chest. Electronically Signed: Fabrice Cottrell MD at 10:09 EDT Tel , Service support ,
[2021-04-11 10:00] LABS: Absolute Lymphocyte Count 1.19 X10^3/uL (0.83-4.51); Absolute Neutrophil Count 4.6 X10^3/uL (2.0-7.7); Basophil# 0.04 X10^3/uL; Basophil% 0.6 % (0-1); Eosinophil# 0.49 X10^3/uL; Eosinophils% 6.8 % (0-5); Hematocrit 39.6 % (37-47); Hemoglobin 13.4 g/dL (12.0-15.0); Lymphocyte # 1.19 X10^3/ul (0.83-4.51); Lymphocyte % 16.5 % (19-41); Mean Corp Hgb Conc 33.8 g/dL (32-36); Mean Corpuscular Hgb 30.7 pg (27.0-32.0); Mean Corpuscular Volume 90.6 fL (81-99); Mean Platelet Vol. 11.5 fl (6.2-12.0); Monocyte% 12.5 % (0-10); NRBC Flagged by Analyzer 0 % (0-5); Neutrophil # 4.58 X10^3/uL (2.7-7.7); Neutrophil % 63.3 % (47-70); Platelet Count 152 K/mm3 (150-450); RBC Distribution Width CV 12.6 % (11.6-14.6); RBC Distribution Width SD 41.3 fl (35.1-43.9); Red Blood Count 4.37 M/mm3 (4.2-5.4); White Blood Count 7.2 K/mm3 (4.4-11.0)
[2021-04-11 10:11] LABS: ALB/GLOB Ratio 0.9 RATIO (0.9-2.4); AST(SGOT) 16 U/L (15-37); Alanine Aminotransfer ALT/SGPT 18 U/L (13-56); Albumin, Serum 3.3 g/dL (3.2-5.0); Alkaline Phosphatase 82 U/L (45-117); Anion Gap 5 (5-15); BUN 9 mg/dL (7-18); BUN/Creat Ratio 13.6 RATIO (10-20); Calcium,Total 8.7 mg/dL (8.5-10.1); Chloride 108 mmol/L (98-107); Creatinine, Serum 0.66 mg/dL (0.55-1.02); EST Glomerular Filtration Rate 119 mL/min (>60); Est Glom Filt Rate - Afr Amer 144 mL/min (>60); Estimated Creatinine Clearance 116.43 ml/min; Globulin 3.7 g/dL (2.2-4.2); Glucose 114 mg/dL (74-106); Potassium 3.6 mmol/L (3.5-5.1); Sodium Level 140 mmol/L (136-145); Troponin-I HS 4 pg/mL (3.0-54.0)
[2021-04-11 10:35] LABS: Internal QC Validated? YES +Cl - CLEAR BKGD; Pregnancy, Serum, hCG Quali. POSITIVE Negative
[2021-04-11 11:19] VITALS: BP 106/70; PULSE 86; RESP 16; O2SAT 99
[2021-04-11 12:03] LABS: Troponin-I HS 6 pg/mL (3.0-54.0)
--- NOTE | 2021-04-11 12:58 | ED.VIS.CHEST ---
HPI History of Present Illness Chief Complaint: Palpitations Informant: patient Onset/Context/Timing Onset: Today Activity at onset: sudden Timing: Intermittent and Lasts (Approximately 20 minutes) Quality: Positive for Burning Location: Substernal Worsened By: Nothing Relieved By: Nothing Associated Symptoms: Positive for Lightheadedness, Acid Reflux and Palpitations; Negative for Nausea, Vomiting, Diaphoresis, Dyspnea, Cough and Fever Narrative Narrative: Patient presents with palpitations that began today. Patient states she has a history of SVT and states her palpitations felt similar to that. Patient states they lasted for approximately 20 minutes. Patient describes her pain as a burning. Patient states it is over the substernal area. Patient states nothing makes it better nothing makes it worse. Patient admits to some lightheadedness and acid reflux. Patient denies any nausea or vomiting. Patient denies any shortness of breath or cough. Patient denies any diaphoresis. Prior Similar Symptoms: Yes CVD Risk Factors: Negative for Hypertension, Diabetes, Hypercholesterolemia, Family History 1' </=55 and Smoking PE Risk Factors: Negative for Recent Travel/Surgery, Recent Immobilization, Prior DVT or PE and Cancer [facility] Medical History Anemia Chlamydia Costal chondritis COVID-19 Dysmenorrhea Endometrial cystoma of right ovary Family history of coronary artery disease Frequent UTI Gonorrhea Nicotine dependence Supraventricular tachycardia (04/2020) Home Medications ferrous sulfate 325 mg (65 mg iron) tablet 325 mg PO DAILY 03/03/20 [History Last Taken Unknown] medroxyprogesterone 150 mg/mL intramuscular suspension 150 mg IM [id number] 03/03/20 [History Last Taken Unknown] nitrofurantoin monohyd/m-cryst 100 mg PO Q12 #10 cap 08/27/20 [Rx Last Taken Unknown] ondansetron 4 mg PO Q8H PRN PRN #10 tab 08/27/20 [Rx Last Taken Unknown] metoprolol succinate 25 mg PO 04/11/21 [History Last Taken Unknown] Allergy/AdvReac Type Severity Reaction Status Date / Time No Known Allergies Allergy Verified 04/11/21 09:42 Family History Father CAD (coronary artery disease) coronary stents, CMP, Stent RCA Myocardial infarction, Onset Age: 34 Heart disease [place] CMP Uncle Myocardial infarction CAD (coronary artery disease) Grandmother CAD (coronary artery disease) Myocardial infarction Social History number of children: 1 Smoking Status: Current every day smoker tobacco type: cigarettes Smokeless tobacco user: other second hand exposure: No alcohol intake: current alcohol intake frequency: a few times a week ROS ROS ED Constitutional Constitutional ED: Denies chills or fever(s) Eyes Eyes: Denies blurry vision or change in vision ENT ENT ED: Reports rhinorrhea; Denies sore throat Cardiovascular Cardiovascular: Reports chest pain and palpitations Respiratory/Chest Respiratory/Chest: Denies cough or dyspnea Gastrointestinal Gastrointestinal: Reports nausea; Denies abdominal pain or vomiting Genitourinary Genitourinary ED: Denies dysuria or hematuria Musculoskeletal Musculoskeletal: Denies back pain or neck pain Integumentary Denies abscess or rash Neurologic Neurologic: Denies headache(s) or weakness Allergic/Immunologic Allergic/Immunologic ED: Denies mouth swelling or urticaria EXAM Physical Exam Const Vital Signs: 04/11/21 09:11 04/11/21 09:39 04/11/21 09:40 Temperature 97.8 F Temperature Source Temporal Pulse Rate 96 95 Respiratory Rate 16 16 Respiratory Pattern Normal Blood Pressure 102/74 Blood Pressure Mean 83 Pulse Ox 97 Oxygen Delivery Method Room Air 04/11/21 11:19 04/11/21 13:06 Temperature Temperature Source Pulse Rate 86 76 Respiratory Rate 16 20 H Respiratory Pattern Blood Pressure 106/70 96/56 L Blood Pressure Mean 82 Pulse Ox 99 Oxygen Delivery Method Room Air Positive well nourished and well developed General Appearance ED: well developed HEENT normocephalic and atraumatic Eyes PERRL and EOMs intact bilaterally Neck supple and no JVD Chest Wall palpation of chest normal Resp normal respiratory effort and clear to auscultation bilaterally Effort and Inspection: Negative for respiratory distress Cardio regular rate, regular rhythm and no murmurs GI normal to inspection, nondistended, normoactive bowel sounds, soft to palpation, non-tender and non-distended Extremity normal to inspection General Extremety ED: Negative for edema or tenderness General Extremity: Negative for edema Neuro oriented x3, CN's II-XII intact bilaterally and no sensory deficits noted Sensorium / Orientation: awake and alert Motor Exam: strength 5/5 throughout Psych mental status grossly normal Heart Score History: Slightly/Non-Suspicious ECG: Normal Age: </= 45 years Risk Factors: No Risk Factors Troponin: </= Normal Limit Score: 0 MDM MDM MDM Narrative Medical decision making narrative: EKG was obtained. On my interpretation, it showed a normal sinus rhythm with a rate of 87. ME interval, QRS interval, and QTc intervals were all normal. [place] was normal. There are no acute ST or T wave changes. Portable 1 view chest x-ray was obtained. On my interpretation, lung chaves are clear. There is normal cardiac silhouette. Bony thorax is normal. There is no acute process noted. Radiologist also interpreted the x-ray and agrees. CBC and comprehensive metabolic profile was within normal limits. High-sensitivity troponin was normal. Serum hCG was positive. Patient was advised of her findings. Patient was instructed to follow-up with her primary care physician in 5 to 7 days. Patient was also given a referral for [employer] INSTALLER follow-up. Patient understood and was agreeable with the plan. All questions were answered. Lab Data Attestation: I reviewed the patient's lab results. Labs: Laboratory Results - last 24 hr 04/11/21 04/11/21 04/11/21 09:40 09:40 09:40 WBC 7.2 RBC 4.37 Hgb 13.4 Hct 39.6 MCV 90.6 MCH 30.7 MCHC 33.8 RDW Std Deviation 41.3 RDW Coeff of [place] 12.6 Plt Count 152 MPV 11.5 Immature Gran % (Auto) 0.300 Neut % (Auto) 63.3 Lymph % (Auto) 16.5 L [place] % (Auto) 12.5 H Eos % (Auto) 6.8 H Baso % (Auto) 0.6 Absolute Neuts (auto) 4.6 Absolute Lymphs (auto) 1.19 Nucleated RBC % 0 Sodium 140 Potassium 3.6 Chloride 108 H Carbon Dioxide 27.0 Anion Gap 5 BUN 9 Creatinine 0.66 Estim Creat Clear Calc 116.43 Est GFR (MDRD) Af Amer 144 Est GFR (MDRD) Non-Af 119 BUN/Creatinine Ratio 13.6 Glucose 114 H Calcium 8.7 Total Bilirubin 0.30 AST 16 ALT 18 Alkaline Phosphatase 82 Troponin I High Sens 4 Total Protein 7.0 Albumin 3.3 Globulin 3.7 Albumin/Globulin Ratio 0.9 Serum , Qual POSITIVE H 04/11/21 04/11/21 09:40 11:35 WBC RBC Hgb Hct MCV MCH MCHC RDW Std Deviation RDW Coeff of [place]elin Plt Count MPV Immature Gran % (Auto) Neut % (Auto) Lymph % (Auto) [place] % (Auto) Eos % (Auto) Baso % (Auto) Absolute Neuts (auto) Absolute Lymphs (auto) Nucleated RBC % Sodium Potassium Chloride Carbon Dioxide Anion Gap BUN Creatinine Estim Creat Clear Calc Est GFR (MDRD) Af Amer Est GFR (MDRD) Non-Af BUN/Creatinine Ratio Glucose Calcium Total Bilirubin AST ALT Alkaline Phosphatase Troponin I High Sens Cancelled 6 Total Protein Albumin Globulin Albumin/Globulin Ratio Serum , Qual Radiography Chest X-Ray - ED: 1 View, Read by ED Physician, Read by Radiologist and Normal Diagnostic Testing: Clinical Impression(s) from Imaging Studies Chest X-Ray 04/11/21 09:52 IMPRESSION: Normal x-ray examination of the chest. Electronically Signed: Fabrice Cottrell MD at 10:09 EDT Tel , Service support , EKG Initial EKG: Attestation: I personally reviewed and interpreted this EKG as follows: Interpretation: Sinus Rhythm (87) and No Acute Injury Pattern Prior EKG tracings: available for review Prior: Unchanged (08/27/2020) Discharge Plan Triage Chief Complaint: Palpitations ED Provider: Michael Rojas Dx/Rx/DC Orders Clinical Impression: Heart palpitations, Positive test Instructions: ED Palpitations Prescriptions: No Action ferrous sulfate 325 mg (65 mg iron) tablet 325 mg PO DAILY RF: 0 medroxyprogesterone [Depo-Provera] 150 mg/mL suspension 150 mg IM [id number] RF: 0 ondansetron 4 MG tablet 4 mg PO Q8H PRN PRN (Reason: Nausea) Qty: 10 RF: 0 nitrofurantoin monohyd/m-cryst 100 MG capsule 100 mg PO Q12 Qty: 10 RF: 0 metoprolol succinate 25 mg tablet extended release 24 hr 25 mg PO RF: 0 Primary Care Provider: Care Physician,No Primary Referrals: Georgia Foley DO [STAFF PHYSICIAN] - 1-2 Weeks Thelma Guerrero MD [STAFF PHYSICIAN] - 3-5 Days Care Physician,No Primary [Primary Care Provider] - 3-5 Days Disposition Disposition: Home, Self Care Discharge Date/Time: 04/11/21 13:07
[2021-04-11 13:06] VITALS: BP 96/56; PULSE 76; RESP 20
== END 2021-04-11 13:07 | disposition home or self-care (01) ==
PROVIDERS: Emergency Provider Emergency Medicine
DX: O26.899 Other specified pregnancy related conditions, unspecified trimester (principal); O99.330 Smoking (tobacco) complicating pregnancy, unspecified trimester; R00.2 Palpitations; F17.210 Nicotine dependence, cigarettes, uncomplicated; Z3A.00 Weeks of gestation of pregnancy not specified
CPT/HCPCS: 71045; 80053; 84484; 84703; 85025; 93005; 99284

== ENCOUNTER → 2021-04-13 17:04 | Outpatient (CLI) | payer MEDICAID, SELFPAY ==
[2021-04-13 17:31] LABS: Absolute Lymphocyte Count 2.36 X10^3/uL (0.83-4.51); Absolute Neutrophil Count 3.7 X10^3/uL (2.0-7.7); Basophil# 0.04 X10^3/uL; Basophil% 0.6 % (0-1); Eosinophil# 0.31 X10^3/uL; Eosinophils% 4.3 % (0-5); Hematocrit 40.8 % (37-47); Hemoglobin 13.8 g/dL (12.0-15.0); Lymphocyte # 2.36 X10^3/ul (0.83-4.51); Lymphocyte % 32.8 % (19-41); Mean Corp Hgb Conc 33.8 g/dL (32-36); Mean Corpuscular Hgb 29.9 pg (27.0-32.0); Mean Corpuscular Volume 88.5 fL (81-99); Mean Platelet Vol. 11.9 fl (6.2-12.0); Monocyte# 0.77 X10^3/uL; Monocyte% 10.7 % (0-10); NRBC Flagged by Analyzer 0 % (0-5); Neutrophil % 51.3 % (47-70); Platelet Count 192 K/mm3 (150-450); RBC Distribution Width CV 12.6 % (11.6-14.6); RBC Distribution Width SD 41.2 fl (35.1-43.9); Red Blood Count 4.61 M/mm3 (4.2-5.4); White Blood Count 7.2 K/mm3 (4.4-11.0)
[2021-04-13 17:50] LABS: Anion Gap 6 (5-15); BUN 10 mg/dL (7-18); Calcium,Total 8.7 mg/dL (8.5-10.1); Chloride 104 mmol/L (98-107); Creatinine, Serum 0.59 mg/dL (0.55-1.02); EST Glomerular Filtration Rate 137 mL/min (>60); Est Glom Filt Rate - Afr Amer 166 mL/min (>60); Glucose 75 mg/dL (74-106); Sodium Level 138 mmol/L (136-145)
[2021-04-13 18:22] LABS: hCG Titer Quant., Serum 13583 mIU/mL (1-3)
[2021-04-14 09:47] LABS: HIV - WCH Non-Reactive (Nonreactive); Hepatitis B Surface Antigen Non-Reactive (Nonreactive); Hepatitis C Antibody Non-Reactive (Nonreactive); Rubella IgG Reactive (Nonreactive); Syphilis Antibodies Non-reactive
[2021-04-16 22:40] LABS: Gonococcus By Nucleic Acid AMP Negative (Negative)
[2021-04-17 13:47] LABS: HPV Reflexed? NOT INDICATED
[2021-04-19 08:57] LABS: Chlamydia By Nucleic Acid AMP Positive (Negative)
== END ==
PROVIDERS: Referring Provider Obstetrics & Gynecology; Visit Provider Obstetrics & Gynecology
DX: Z12.4 Encounter for screening for malignant neoplasm of cervix (principal); Z11.3 Encounter for screening for infections with a predominantly sexual mode of transmission
CPT/HCPCS: 80048; 84702; 85025; 86703; 86762; 86780; 86803; 87086; 87340; 87491; 87591; 88175; G0145

== ENCOUNTER → 2021-06-02 13:45 | Outpatient (CLI) | payer MEDICAID, SELFPAY ==
[2021-06-04 22:06] LABS: Chlamydia By Nucleic Acid AMP Negative (Negative)
[2021-06-05 14:07] LABS: Gonococcus By Nucleic Acid AMP Negative (Negative)
== END ==
PROVIDERS: Visit Provider Obstetrics & Gynecology
DX: Z34.81 Encounter for supervision of other normal pregnancy, first trimester (principal); R30.0 Dysuria
CPT/HCPCS: 87086; 87088; 87491; 87591

== ENCOUNTER 2021-06-20 08:09 | Emergency (ER) | payer MEDICAID, SELFPAY ==
[2021-06-20 08:10] VITALS: BP 111/60; PULSE 143; RESP 26; TEMP 36.8; O2SAT 97; BMI 24.0
--- NOTE | 2021-06-20 08:15 | RAD_ITS ---
STUDY: X-RAY CHEST REASON FOR EXAM: Female, 21 years old. cough -- Shield abdomen TECHNIQUE: Single AP portable view of the chest. COMPARISON: 04/11/2021 FINDINGS: The lungs are clear and expanded. There is no demonstrated pleural abnormality. Normal size heart. Normal mediastinum and natalie. Normal visualized pulmonary arteries. Normal visualized aortic arch and descending thoracic aorta. Normal visualized thoracic spine. Normal visualized ribs, clavicles, and shoulders. There is no demonstrated abnormality of the visualized soft tissue structures of the upper abdomen. RAD/Chest 1 View (Portable) IMPRESSION: Normal x-ray examination of the chest. Electronically Signed: Fabrice Cottrell MD at 9:41 EST Tel , Service support ,
[2021-06-20 08:20] VITALS: BP 111/62; PULSE 130; RESP 20; O2SAT 98
--- NOTE | 2021-06-20 08:20 | EKG12_ITS ---
Test Reason : SOB Blood Pressure : / mmHG Vent. Rate : 130 BPM Atrial Rate : 130 BPM P-R Int : 158 ms QRS Dur : 080 ms QT Int : 272 ms P-R-T Axes : 048 064 033 degrees QTc Int : 400 ms Sinus tachycardia Otherwise normal ECG Confirmed by RUSTAM GALE, ADDIE ([id number]), avid editor MORENO SHANNON ([id number]) on 06/23/2021 9:48:34 AM Referred By: MELI Confirmed By:ADDIE EASTON MD
--- NOTE | 2021-06-20 08:31 | ED.VIS.DYS ---
HPI History of Present Illness Chief Complaint: Shortness of Breath Informant: patient Onset/Context/Timing Onset: Yesterday Context: gradual Timing: Continuous Quality: Positive for Dyspnea on exertion and Orthopnea Worsened by: Exertion and Lying flat Relieved by: Nothing Associated Symptoms cough, rhinorrhea, fever, subjective and chills; Negative for ear pain, sore throat, clear sputum, white sputum, yellow sputum or green sputum Chest Pain: Positive for Burning Narrative Narrative: Patient presents with shortness of breath that began last night. Patient states it is gradually gotten worse. Patient states her breathing is worse with laying flat and with exertion. Patient states nothing seems to help with her breathing. Patient admits to a dry cough. Patient admits to some mild rhinorrhea. Patient admits to subjective fevers and chills. Patient admits to burning pain in the left side of her chest. Patient states she tested positive for COVID-[address] [facility] Medical History Anemia Chlamydia Costal chondritis COVID-19 Dysmenorrhea Endometrial cystoma of right ovary Family history of coronary artery disease Frequent UTI Gonorrhea Nicotine dependence Supraventricular tachycardia (04/2020) Home Medications metoprolol succinate 25 mg PO DAILY 04/11/21 [History Last Taken Unknown] [id number] [] 1 tab PO DAILY 06/20/21 [History Last Taken Unknown] Allergy/AdvReac Type Severity Reaction Status Date / Time No Known Allergies Allergy Verified 06/20/21 08:09 Family History Father CAD (coronary artery disease) coronary stents, CMP, Stent RCA Myocardial infarction, Onset Age: 34 Heart disease [place] CMP Uncle Myocardial infarction CAD (coronary artery disease) Grandmother CAD (coronary artery disease) Myocardial infarction Social History number of children: 1 Smoking Status: Former smoker Smokeless tobacco user: other second hand exposure: No alcohol intake: current alcohol intake frequency: a few times a week ROS ROS ED Constitutional Constitutional ED: Reports chills and fever(s) Eyes Eyes: Denies blurry vision or change in vision ENT ENT ED: Reports rhinorrhea; Denies sore throat Cardiovascular Cardiovascular: Reports chest pain and racing heartbeat Respiratory/Chest Respiratory/Chest: Reports cough and dyspnea Gastrointestinal Gastrointestinal: Denies nausea or vomiting Genitourinary Genitourinary ED: Denies dysuria or hematuria Musculoskeletal Musculoskeletal: Reports back pain and myalgias Integumentary Denies abscess or rash Neurologic Neurologic: Reports headache(s); Denies weakness Allergic/Immunologic Allergic/Immunologic ED: Denies mouth swelling or urticaria EXAM Physical Exam Const Vital Signs: 06/20/21 08:10 06/20/21 08:20 Temperature 98.2 F Temperature Source Temporal Pulse Rate 143 H 130 H Respiratory Rate 26 H 20 H Respiratory Effort Normal Non-Labored Respiratory Depth Normal Respiratory Pattern Normal Blood Pressure 111/60 111/62 Blood Pressure Mean 77 78 Pulse Ox 97 98 Oxygen Delivery Method Room Air Room Air Positive well nourished and well developed General Appearance ED: well developed HEENT Reports moist mucous membranes Neck supple and no JVD Resp normal respiratory effort and clear to auscultation bilaterally Cardio regular rhythm and no murmurs Rate: tachycardic GI normal to inspection, nondistended, normoactive bowel sounds and non-tender Palpation: soft Extremity normal to inspection General Extremety ED: Negative for edema or tenderness General Extremity: Negative for edema Neuro oriented x3, CN's II-XII intact bilaterally and no sensory deficits noted Sensorium / Orientation: alert Motor Exam: strength 5/5 throughout Psych mental status grossly normal Skin no rashes or lesions noted MDM MDM MDM Narrative Medical decision making narrative: Patient was given 6 puffs of albuterol inhaler here. Patient was given a dose of her metoprolol. Patient was given a dose of Tylenol. Patient was given IV fluids. EKG was obtained. On my interpretation, it showed a sinus tachycardia with a rate of 130. [place] interval, QRS interval, and QTc intervals were all normal. [place] was normal. There are no acute ST or T wave changes. CBC shows a mild anemia with a hemoglobin of 10.5 and hematocrit of 30.5. Comprehensive metabolic profile was within normal limits. Anion gap was normal. Lactate was normal. Portable 1 view chest x-ray was obtained. On my interpretation, lung chaves are clear. There is normal cardiac silhouette. Bony thorax is normal. There is no acute process noted. Radiologist also interpreted the x-ray and agrees. COVID-19 rapid antigen was obtained and was positive. Patient was advised of her findings. Patient is feeling better on reevaluation. Patient still mildly tachycardic. Patient was instructed to use the albuterol inhaler every 4 hours as needed for shortness of breath. Patient was instructed to quarantine herself. Patient was instructed to wear a mask. Patient was instructed to follow-up with her primary care physician in 5 to 7 days. Patient understood and was agreeable with the plan. All questions were answered. Lab Data Attestation: I reviewed the patient's lab results. Labs: Laboratory Results - last 24 hr 06/20/21 06/20/21 06/20/21 08:30 08:30 08:45 WBC 5.9 RBC 3.42 L Hgb 10.5 L Hct 30.5 L MCV 89.2 MCH 30.7 MCHC 34.4 RDW Std Deviation 44.6 H RDW Coeff of [place] 13.6 Plt Count 94 L MPV 11.1 Immature Gran % (Auto) 1.000 H Neut % (Auto) 84.6 H Lymph % (Auto) 3.6 L Tr[place] % (Auto) 8.3 Eos % (Auto) 2.2 Baso % (Auto) 0.3 Absolute Neuts (auto) 5.0 Absolute Lymphs (auto) 0.21 L Nucleated RBC % 0 Platelet Estimate MOD DEC Sodium 135 L Potassium 3.3 L Chloride 107 Carbon Dioxide 21.0 Anion Gap 7 BUN 7 Creatinine 0.53 L Estim Creat Clear Calc 144.99 Est GFR (MDRD) Af Amer 187 Est GFR (MDRD) Non-Af 155 BUN/Creatinine Ratio 13.2 Glucose 106 Lactic Acid 1.8 Calcium 8.4 L Total Bilirubin 0.20 AST 18 ALT 17 Alkaline Phosphatase 65 Total Protein 6.2 L Albumin 2.6 L Globulin 3.6 Albumin/Globulin Ratio 0.7 L Radiography Chest X-Ray - ED: 1 View, Read by ED Physician, Read by Radiologist and Normal Diagnostic Testing: Clinical Impression(s) from Imaging Studies Chest X-Ray 06/20/21 08:15 IMPRESSION: Normal x-ray examination of the chest. Electronically Signed: Fabrice Cottrell MD at 9:41 EST Tel , Service support , EKG Initial EKG: Attestation: I personally reviewed and interpreted this EKG as follows: Interpretation: No Acute Injury Pattern and Sinus Tachycardia (130) Discharge Plan Triage Chief Complaint: Shortness of Breath ED Provider: Michael Rojas Dx/Rx/DC Orders Clinical Impression: COVID-19 Instructions: Coronavirus Disease 2019 (COVID-19): Caring for Yourself or Others, Coronavirus Disease 2019 COVID-19 and Childbirth Prescriptions: No Action metoprolol succinate 25 mg tablet extended release 24 hr 25 mg PO DAILY RF: 0 1 mg Tablet 1 tab PO DAILY RF: 0 Primary Care Provider: Care Physician,No Primary Referrals: Care Physician,No Primary [Primary Care Provider] - 5-7 Days Disposition Disposition: Home, Self Care
[2021-06-20 08:44] LABS: Absolute Lymphocyte Count 0.21 X10^3/uL (0.83-4.51); Basophil# 0.02 X10^3/uL; Basophil% 0.3 % (0-1); Differential Indicated SCAN CRITERIA MET; Eosinophil# 0.13 X10^3/uL; Eosinophils% 2.2 % (0-5); Hematocrit 30.5 % (37-47); Hemoglobin 10.5 g/dL (12.0-15.0); Lymphocyte # 0.21 X10^3/ul (0.83-4.51); Lymphocyte % 3.6 % (19-41); Mean Corp Hgb Conc 34.4 g/dL (32-36); Mean Corpuscular Hgb 30.7 pg (27.0-32.0); Mean Corpuscular Volume 89.2 fL (81-99); Mean Platelet Vol. 11.1 fl (6.2-12.0); Monocyte# 0.49 X10^3/uL; Monocyte% 8.3 % (0-10); NRBC Flagged by Analyzer 0 % (0-5); Neutrophil % 84.6 % (47-70); POSITIVE COUNT YES; POSITIVE DIFFERENTIAL YES; Platelet Count 94 K/mm3 (150-450); RBC Distribution Width CV 13.6 % (11.6-14.6); RBC Distribution Width SD 44.6 fl (35.1-43.9); Red Blood Count 3.42 M/mm3 (4.2-5.4); White Blood Count 5.9 K/mm3 (4.4-11.0)
[2021-06-20] MEDS: Acetaminophen 500 MG Tablet 1000 MG PO (08:44)
[2021-06-20] MEDS: Metoprolol Tartrate 25 MG Tablet 12.5 MG PO (08:45)
[2021-06-20 09:04] LABS: ALB/GLOB Ratio 0.7 RATIO (0.9-2.4); AST(SGOT) 18 U/L (15-37); Alanine Aminotransfer ALT/SGPT 17 U/L (13-56); Albumin, Serum 2.6 g/dL (3.2-5.0); Alkaline Phosphatase 65 U/L (45-117); Anion Gap 7 (5-15); BUN 7 mg/dL (7-18); BUN/Creat Ratio 13.2 RATIO (10-20); Calcium,Total 8.4 mg/dL (8.5-10.1); Chloride 107 mmol/L (98-107); Creatinine, Serum 0.53 mg/dL (0.55-1.02); EST Glomerular Filtration Rate 155 mL/min (>60); Est Glom Filt Rate - Afr Amer 187 mL/min (>60); Estimated Creatinine Clearance 144.99 ml/min; Globulin 3.6 g/dL (2.2-4.2); Glucose 106 mg/dL (74-106); Potassium 3.3 mmol/L (3.5-5.1); Protein, Total 6.2 g/dL (6.4-8.2); Sodium Level 135 mmol/L (136-145)
[2021-06-20 09:05] LABS: Platelet Estimate MOD DEC (ADEQ)
[2021-06-20 09:18] LABS: Lactic Acid 1.8 mmol/L (0.4-1.9)
[2021-06-20 10:12] VITALS: BP 126/74; PULSE 82; RESP 15; O2SAT 97
== END 2021-06-20 10:17 | disposition home or self-care (01) ==
PROVIDERS: Emergency Provider Emergency Medicine
DX: U07.1 COVID-19 (principal); Z87.891 Personal history of nicotine dependence; Z79.899 Other long term (current) drug therapy
CPT/HCPCS: 71045; 80053; 83605; 85025; 87426; 93005; 94640; 99284; J7040; A4216

== ENCOUNTER 2021-07-08 16:45 | Outpatient (CLI) | payer MEDICAID, SELFPAY | END 2021-07-08 23:59 | disposition short-term general hospital (02) | LOC: LABSPEC 07-09 11:44 | PROVIDERS: Visit Provider Obstetrics & Gynecology | DX: N76.0 Acute vaginitis (principal); N77.1 Vaginitis, vulvitis and vulvovaginitis in diseases classified elsewhere ==

== ENCOUNTER 2021-07-13 10:08 | Emergency (ER) | payer MEDICAID, SELFPAY ==
--- NOTE | 2021-07-13 10:10 | EKG12_ITS ---
Test Reason : TACHYCARDIA Blood Pressure : / mmHG Vent. Rate : 186 BPM Atrial Rate : 108 BPM P-R Int : 000 ms QRS Dur : 068 ms QT Int : 242 ms P-R-T Axes : 000 054 004 degrees QTc Int : 425 ms Supraventricular tachycardia Nonspecific ST abnormality Abnormal ECG Confirmed by RUSTAM GALE, ADDIE ([id number]), dictionary editor MORENO SHANNON ([id number]) on 07/14/2021 11:39:49 AM Referred By: ABNER Confirmed By:ADDIE EASTON MD
[2021-07-13 10:11] VITALS: BP 113/67; PULSE 206; RESP 20; TEMP 36.2; O2SAT 97; BMI 20.9
[2021-07-13 10:44] VITALS: BP 110/65; PULSE 114; RESP 17; O2SAT 98
[2021-07-13] MEDS: Adenosine 6 MG/2 ML Syringe IV (10:44)
--- NOTE | 2021-07-13 11:00 | EKG12_ITS ---
Test Reason : REPEAT Blood Pressure : / mmHG Vent. Rate : 111 BPM Atrial Rate : 111 BPM P-R Int : 164 ms QRS Dur : 078 ms QT Int : 312 ms P-R-T Axes : 040 043 020 degrees QTc Int : 424 ms Sinus tachycardia Otherwise normal ECG Confirmed by RUSTAM GALE, ADDIE ([id number]), acquisition editor MORENO SHANNON ([id number]) on 07/14/2021 11:40:13 AM Referred By: ABNER Confirmed By:ADDIE EASTON MD
--- NOTE | 2021-07-13 11:19 | EX.ED.DYSGE1 ---
HPI History of Present Illness Chief Complaint: Chest Pain Narrative Narrative: Patient presents with palpitations, this feels like prior SVT, she has a history of SVT in the past. She is also 5 months . She has no new symptoms that started suddenly while at work earlier today. No recent fever chills cough or congestion, she has no abdominal pain or abdominal cramping, she does have movements that she feels. PFSH PFS Medical History Anemia Chlamydia Costal chondritis COVID-19 Dysmenorrhea Endometrial cystoma of right ovary Family history of coronary artery disease Frequent UTI Gonorrhea Nicotine dependence Supraventricular tachycardia (04/2020) Home Medications metoprolol succinate 25 mg PO DAILY 04/11/21 [History Last Taken Unknown] [id number] [] 1 tab PO DAILY 06/20/21 [History Last Taken Unknown] Allergy/AdvReac Type Severity Reaction Status Date / Time No Known Allergies Allergy Verified 07/13/21 10:13 Family History Father CAD (coronary artery disease) coronary stents, CMP, Stent RCA Myocardial infarction, Onset Age: 34 Heart disease [place] CMP Uncle Myocardial infarction CAD (coronary artery disease) Grandmother CAD (coronary artery disease) Myocardial infarction Social History number of children: 1 Smoking Status: Former smoker Smokeless tobacco user: other second hand exposure: No alcohol intake: current alcohol intake frequency: a few times a week ROS ROS ED ROS Narrative Past medical history: Reviewed Medications: Reviewed Social history: Noncontributory Review of systems: All systems negative except as indicated General: No fever Eyes: No visual changes ENT: No upper airway congestion, normal voice Neck: No neck pain Cardiovascular: Palpitations as in HPI Respiratory: No shortness of breath or cough Gastrointestinal: No abdominal pain, nausea vomiting or diarrhea Genitourinary: No dysuria. No vaginal bleeding Musculoskeletal: Denies myalgias no difficulty with ambulation Skin: No rash Neurological: No memory loss, confusion or any focal weakness Psych: No recent behavioral changes Hematologic: No easy bleeding or easy bruising EXAM Physical Exam Narrative Exam Narrative: Physical exam General: Patient appears slightly anxious Head: Normocephalic, Atraumatic Eyes: Conjunctiva not pale ENT: Moist mucous membranes Neck: Supple, Nontender, No lymphadenopathy Cardiovascular: Regular tachycardia, no obvious murmur. Normal peripheral pulses. Respiratory: No distress, CTA bilaterally Abdomen: Soft, gravid, nontender, Nondistended Back: Nontender, Normal Inspection. Negative for: CVA tenderness Extremities: Nontender, No edema Skin: Normal color, No rash Neurological: Alert, Normal Strength, Normal Sensation Psychological: Normal affect Const Vital Signs: 07/13/21 10:11 07/13/21 10:44 07/13/21 10:47 Temperature 97.1 F L Temperature Source Temporal Pulse Rate 206 H 114 H Respiratory Rate 20 H 17 Respiratory Effort Normal Non-Labored Respiratory Pattern Normal Blood Pressure 113/67 110/65 Blood Pressure Mean 82 80 Pulse Ox 97 98 Oxygen Delivery Method Room Air Room Air MDM MDM MDM Narrative Medical decision making narrative: Procedure note: Chemical cardioversion Indication: SVT Verbal consent obtained. Patient was placed on a monitor, a total of 6 mg of adenosine was given followed by a flush. Patient had conversion to sinus rhythm soon afterwards. She tolerated procedure well. Repeat EKG shows normal sinus rhythm without any abnormalities. MDM: Patient was cardioverted, she was observed afterwards and did quite well. 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 EKG Initial EKG: Comments: SVT with a rate of 186. I cannot see a [place] interval. QTc is 425. Otherwise no ischemic changes. Interpreted by emergency DrTru Follow-up EKG: Comments: Sinus rhythm with a rate of 111. Normal [place] and QTc interval. This is changed from the prior EKG of SVT. Interpreted by emergency DrTru Discharge Plan Triage Chief Complaint: Chest Pain ED Provider: Frederick Cisneros Dx/Rx/DC Orders Clinical Impression: Paroxysmal SVT (supraventricular tachycardia), Instructions: ED Understanding Supraventricular Tachycardia (SVT) Prescriptions: No Action metoprolol succinate 25 mg tablet extended release 24 hr 25 mg PO DAILY RF: 0 1 mg Tablet 1 tab PO DAILY RF: 0 Primary Care Provider: Care Physician,No Primary Referrals: Care Physician,No Primary [Primary Care Provider] - 2 Days Disposition Disposition: Home, Self Care
[2021-07-13 11:22] VITALS: BP 105/69; PULSE 100; RESP 22; O2SAT 99
--- NOTE | 2021-07-13 11:28 | CM.ED ---
ALEXANDRA Note ALEXANDRA noted that patient has no PCP per chart. ALEXANDRA met with patient. She reports she has multiple doctors including cardiology and OB but no PCP. ALEXANDRA provided patient with [facility] Healthcare Provider Directory. Karen LONG
== END 2021-07-13 11:34 | disposition home or self-care (01) ==
PROVIDERS: Emergency Provider Emergency Medicine; Visit Provider Emergency Medicine
DX: O99.412 Diseases of the circulatory system complicating pregnancy, second trimester (principal); I47.1 Supraventricular tachycardia; Z3A.00 Weeks of gestation of pregnancy not specified; Z87.891 Personal history of nicotine dependence; Z86.16 Personal history of COVID-19; Z82.49 Family history of ischemic heart disease and other diseases of the circulatory system
CPT/HCPCS: 93005; 96374; 99284; J7030; J0153

== ENCOUNTER 2021-07-29 17:02 | Outpatient (CLI) | payer MEDICAID, SELFPAY ==
[2021-07-29 19:31] LABS: Chlamydia Trachomatis by PCR POSITIVE (Negative); Neisserai gonorrhoeae by PCR Negative (Negative); Probe Check PASS; Sample Adequacy Control PASS; Specimen Processing Control PASS
== END 2021-07-29 23:59 | disposition short-term general hospital (02) ==
PROVIDERS: Visit Provider Obstetrics & Gynecology
DX: A56.00 Chlamydial infection of lower genitourinary tract, unspecified (principal)
CPT/HCPCS: 87491; 87591

== ENCOUNTER 2021-08-15 08:05 | Outpatient (CLI) | payer MEDICAID, SELFPAY ==
[2021-08-15 08:20] VITALS: BP 123/60; PULSE 90; TEMP 36.3; O2SAT 98
[2021-08-15 08:23] VITALS: PULSE 93; O2SAT 98
[2021-08-15 08:28] VITALS: PULSE 82; O2SAT 98
[2021-08-15 08:33] VITALS: BMI 25.8
[2021-08-15 11:14] VITALS: BP 115/66; PULSE 75; TEMP 36.2; O2SAT 99
[2021-08-15 11:15] VITALS: PULSE 75; O2SAT 99
--- NOTE | 2021-08-15 11:15 | OB.TRI.NOTE ---
HPI - General HPI Narrative RAJESH PIZARRO, is a 21 F who presents at 24 weeks 0 days gestation with some mild vaginal bleeding and lower abdominal discomfort. care has been remarkable for positive chlamydia and trichomonas. In fact, she has been treated twice for trichomonas. She has not had a culture for cure for chlamydia. She claims that she has not had intercourse since she has been treated for these infections. [facility] PFS Medical History Anemia Chlamydia Costal chondritis COVID-19 Dysmenorrhea Endometrial cystoma of right ovary Family history of coronary artery disease Frequent UTI Gonorrhea Nicotine dependence Supraventricular tachycardia (04/2020) Home Medications metoprolol succinate 25 mg PO DAILY 04/11/21 [History Last Taken 08/14/21 07:00] [id number] [] 1 tab PO DAILY 06/20/21 [History Last Taken 08/15/21 07:00] acetaminophen [Tylenol] 650 mg PO Q8 08/15/21 [History Last Taken 08/15/21 07:00] Allergy/AdvReac Type Severity Reaction Status Date / Time No Known Allergies Allergy Verified 08/15/21 08:34 Family History Father CAD (coronary artery disease) coronary stents, CMP, Stent RCA Myocardial infarction, Onset Age: 34 Heart disease [place] CMP Uncle Myocardial infarction CAD (coronary artery disease) Grandmother CAD (coronary artery disease) Myocardial infarction Social History number of children: 1 Smoking Status: Former smoker Smokeless tobacco user: other second hand exposure: No alcohol intake: current alcohol intake frequency: a few times a week NST FHR Rate Baby A NST Reactive:: Appropriate for gestational age Assessment & Plan (1) Vaginal bleeding during : PLAN: 24 weeks 0-day gestation with some vaginal bleeding. Likely secondary to recurrent trichomonas infection. Also possible that patient has a recurrent bladder infection given some lower uterine discomfort. Urine sent for culture and sensitivity and will start Macrobid 100 mg twice daily (sent to [facility]) for 7 days while awaiting culture. heart tones are reassuring and cervix is closed thick and high with minimal blood noted in the vagina. Gonorrhea and Chlamydia cultures were sent and are pending. Will have patient exercise pelvic rest for several days and come into the office this week for an ultrasound. Patient instructed to call with increased vaginal bleeding or increasing abdominal pain and discomfort.
[2021-08-15] MEDS: Nitrofurantoin Macrocrystals 100 MG Capsule PO (12:12)
[2021-08-16 14:10] LABS: Chlamydia Trachomatis by PCR Negative (Negative); Neisserai gonorrhoeae by PCR Negative (Negative); Probe Check PASS; Sample Adequacy Control PASS; Specimen Processing Control PASS
== END 2021-08-15 23:59 | disposition home or self-care (01) ==
LOC: WPOUT 08:19 → WP 08:19
PROVIDERS: Visit Provider Obstetrics & Gynecology
DX: O46.92 Antepartum hemorrhage, unspecified, second trimester (principal); N93.9 Abnormal uterine and vaginal bleeding, unspecified; Z87.891 Personal history of nicotine dependence; Z3A.24 24 weeks gestation of pregnancy; Z79.899 Other long term (current) drug therapy; Z87.440 Personal history of urinary (tract) infections
CPT/HCPCS: 59025; 59050; 87086; 87491; 87591; 99218; G0378

== ENCOUNTER 2021-08-31 11:21 | Outpatient (CLI) | payer MEDICAID, SELFPAY ==
[2021-08-31 13:31] LABS: Hematocrit 34.5 % (37-47); Hemoglobin 11.7 g/dL (12.0-15.0); Mean Corp Hgb Conc 33.9 g/dL (32-36); Mean Corpuscular Hgb 31.5 pg (27.0-32.0); Mean Corpuscular Volume 92.7 fL (81-99); Mean Platelet Vol. 11.5 fl (6.2-12.0); Platelet Count 161 K/mm3 (150-450); RBC Distribution Width CV 13.2 % (11.6-14.6); RBC Distribution Width SD 44.6 fl (35.1-43.9); Red Blood Count 3.72 M/mm3 (4.2-5.4); White Blood Count 14.6 K/mm3 (4.4-11.0)
== END 2021-08-31 23:59 | disposition home or self-care (01) ==
LOC: WOBLAB 11:22
PROVIDERS: Visit Provider Obstetrics & Gynecology
DX: D64.9 Anemia, unspecified (principal)
CPT/HCPCS: 36415; 85027

== ENCOUNTER → 2021-10-21 | Outpatient (CLI) | payer MEDICAID, SELFPAY ==
[2021-10-25 05:06] LABS: Chlamydia By Nucleic Acid AMP Negative (Negative)
[2021-10-25 14:28] LABS: Gonococcus By Nucleic Acid AMP Negative (Negative)
== END | disposition home or self-care (01) ==
LOC: LABSPEC 16:21
PROVIDERS: Visit Provider Obstetrics & Gynecology
DX: O23.593 Infection of other part of genital tract in pregnancy, third trimester (principal); N76.0 Acute vaginitis; Z3A.00 Weeks of gestation of pregnancy not specified
CPT/HCPCS: 87491; 87591

== ENCOUNTER → 2021-11-15 | Outpatient (CLI) | payer MEDICAID, SELFPAY ==
[2021-11-15 16:25] LABS: Hematocrit 31.7 % (37-47); Hemoglobin 10.2 g/dL (12.0-15.0); Mean Corp Hgb Conc 32.2 g/dL (32-36); Mean Corpuscular Hgb 28.7 pg (27.0-32.0); Platelet Count 142 K/mm3 (150-450); RBC Distribution Width CV 13.7 % (11.6-14.6); RBC Distribution Width SD 45.1 fl (35.1-43.9); Red Blood Count 3.56 M/mm3 (4.2-5.4); White Blood Count 15.4 K/mm3 (4.4-11.0)
== END | disposition home or self-care (01) ==
LOC: WOBLAB 15:47
PROVIDERS: Visit Provider Obstetrics & Gynecology
DX: Z36.85 Encounter for antenatal screening for Streptococcus B (principal)
CPT/HCPCS: 36415; 85027; 87081

== ENCOUNTER 2021-11-29 07:25 | Inpatient (IN) | payer MEDICAID, SELFPAY ==
[2021-11-29] VITALS (42 sets, daily range): BP systolic 83–137; BP diastolic 45–71; PULSE 69–122; TEMP 36.1–36.5; O2SAT 93–99
[2021-11-29] MEDS: Lactated Ringers 1,000 ML 50 ML IV ×2 (07:40→19:35)
[2021-11-29 07:52] LABS: Absolute Lymphocyte Count 2.33 X10^3/uL (0.83-4.51); Absolute Neutrophil Count 8.8 X10^3/uL (2.0-7.7); Basophil# 0.05 X10^3/uL; Basophil% 0.4 % (0-1); Eosinophil# 0.19 X10^3/uL; Eosinophils% 1.5 % (0-5); Hematocrit 30.5 % (37-47); Hemoglobin 9.8 g/dL (12.0-15.0); Lymphocyte # 2.33 X10^3/ul (0.83-4.51); Lymphocyte % 18.6 % (19-41); Mean Corp Hgb Conc 32.1 g/dL (32-36); Mean Corpuscular Hgb 28.1 pg (27.0-32.0); Mean Corpuscular Volume 87.4 fL (81-99); Mean Platelet Vol. 10.6 fl (6.2-12.0); Monocyte# 0.98 X10^3/uL; Monocyte% 7.8 % (0-10); NRBC Flagged by Analyzer 0 % (0-5); Neutrophil # 8.79 X10^3/uL (2.7-7.7); Neutrophil % 69.9 % (47-70); Platelet Count 135 K/mm3 (150-450); RBC Distribution Width SD 44.2 fl (35.1-43.9); Red Blood Count 3.49 M/mm3 (4.2-5.4); White Blood Count 12.6 K/mm3 (4.4-11.0)
[2021-11-29] MEDS: miSOPROStol 25 MCG TABLET VAGINAL ×3 (08:43→16:46)
--- NOTE | 2021-11-29 08:57 | PCM.HP.BLA ---
History and Physical Date of Admission: 11/29/21 Chief complaint: Induction of labor term History present illness: 21-year-old G2, P1 at 39 weeks and 1 day with JACIEL 12/05/2021 by LMP arrives for induction of labor at term. Denies headache, visual changes, chest pain, shortness of breath, nausea vomiting, right upper quadrant pain. Patient states good movement. is complicated by supraventricular tachycardia not taking medications noncompliant not seen cardiology Obstetric history: G1: 41-week male 04/2019 G2: Current Past medical history: Supraventricular tachycardia Medications: Metoprolol (not taking) Past surgical history: [place] teeth extraction Allergies: No known drug allergies Social history: Former smoker, denies alcohol use or drug use Family history: Denies history DVT or PE Review of systems: Besides the above pertinent positives a full review of systems was performed and found to be negative Physical exam: Vital signs: Blood pressure 115/66 pulse 75 SPO2 97% on room air General: Normal-appearing no acute distress none HEENT: Normocephalic/atraumatic no cervical lymphadenopathy Cardiac/respiratory: No use of accessory muscles, nonlabored breathing Abdomen: Soft, nontender, gravid Extremities: No peripheral edema normal peripheral pulses Psych: Normal affect normal demeanor nonpressured speech Labs: White blood cell count 12.6 hemoglobin 9.8 hematocrit 30.5% platelets 135 Assessment and plan: 21-year-old G2, P1 at 39 weeks and 1 day arrives for induction of labor at term Admit labor and delivery GBS negative Cytotec induction Supraventricular tachycardia: Diagnosed during this patient received adenosine in the ER. Was started on metoprolol in the ER, patient took intermittently and then stopped for majority of . Refused to see cardiology after multiple times of counseling of the importance of this. Patient remains asymptomatic we will continue to monitor. Routine orders Anesthesia to see
[2021-11-29 09:12] LABS: Amphetamine Urine VISTA NEGATIVE (<1000 ng/mL); Barbiturate Urine VISTA NEGATIVE (< 200 ng/mL); Benzodiazepine Urine VISTA NEGATIVE (< 200 ng/mL); Cocaine Urine VISTA NEGATIVE (< 300 ng/mL); Ecstacy Urine VISTA NEGATIVE (< 500 ng/mL); Methadone Urine VISTA NEGATIVE (< 300 ng/mL); PCP Urine VISTA NEGATIVE (< 25 ng/mL); THC Urine VISTA NEGATIVE (< 50 ng/mL); Vista UDS pH Range 5
[2021-11-29 10:43] LABS: Chlamydia Trachomatis by PCR Negative (Negative); Neisserai gonorrhoeae by PCR Negative (Negative); Probe Check PASS; Sample Adequacy Control PASS; Specimen Processing Control PASS
[2021-11-29 17:25] LABS: Bedside Glucose 105 mg/dL (74-106)
[2021-11-29] MEDS: Oxytocin 30 units/NS 500 ml 30 UNITS/500 ML IV.SOLN IV (20:42)
[2021-11-29] MEDS: Lactated Ringers 500 ML 999 ML IV ×2 (22:04→23:02)
[2021-11-29] MEDS: fentaNYL-bupivacaine (epidural) 100 ML BAG EPIDURAL (22:46)
[2021-11-30] VITALS (26 sets, daily range): BP systolic 89–135; BP diastolic 50–93; PULSE 71–103; RESP 16; TEMP 36.1–37.1; O2SAT 93–98
[2021-11-30] MEDS: 0.9% Saline Lock 10 ML Syringe IV ×2 (00:10→01:12)
[2021-11-30] MEDS: Ondansetron 4 MG/2 ML Vial IV (00:10)
[2021-11-30] MEDS: proCHLORPERazine 10 MG/2 ML Vial IV (01:12)
[2021-11-30] MEDS: fentaNYL-bupivacaine (epidural) 100 ML BAG EPIDURAL ×2 (02:51→07:25)
[2021-11-30] MEDS: Lactated Ringers 1,000 ML 200 ML IV ×2 (02:51→07:10)
[2021-11-30 04:15] LABS: ROM Internal Control Test YES-OK TO RESULT pt. (Internal QC)
[2021-11-30 04:16] LABS: ROM Patient Test POSITIVE (Negative)
[2021-11-30] MEDS: Oxytocin 30 units/NS 500 ml 30 UNITS/500 ML IV.SOLN 334 UNITS IV (08:38)
--- NOTE | 2021-11-30 08:52 | EX.PCM.OBRPT ---
Vaginal Delivery Findings Description of Procedure: Normal spontaneous vaginal delivery of a viable female infant, MOSHE. Head and shoulders delivered with ease. Cord clamped and cut x2. Baby handed to patient. Placenta delivered via cord traction and fundal massage. Bilateral labial lacerations noted and repaired in typical fashion. Methergine 0.2mg IM given. EBL 400cc APGARs 8/9
[2021-11-30] MEDS: Methylergonovine 0.2 MG/ML Ampul IM (10:17)
[2021-11-30] MEDS: Ibuprofen 600 MG Tablet PO ×2 (10:48→17:55)
[2021-11-30] MEDS: Acetaminophen 500 MG Tablet 1000 MG PO (23:17)
[2021-12-01 04:08] VITALS: BP 102/48; PULSE 70; RESP 16; TEMP 36.7
[2021-12-01 08:49] VITALS: BP 106/51; PULSE 67; RESP 14; TEMP 36.7; O2SAT 98
[2021-12-01] MEDS: Ibuprofen 600 MG Tablet PO (08:58)
--- NOTE | 2021-12-01 09:02 | PCM.PN.OB ---
Subjective Subjective Reports her back is sore at the epidural site and the lower back. OOB, ambulating without difficulty. Tolerates PO. Voiding without difficulty. Denies heavy lochia. Objective Data Objective Data Vital Signs: Vital Signs Temp Pulse Resp BP Pulse Ox 98.0 F 67 14 106/51 L 98 12/01/21 08:49 12/01/21 08:49 12/01/21 08:49 12/01/21 08:49 12/01/21 08:49 Oxygen Delivery Method Room Air Weight: 79.379 kg Body Mass Index (BMI) 30.0 Intake & Output: Intake and Output for Last 24 Hours 11/29/21 11/30/21 12/01/21 23:59 23:59 23:59 Intake Total 2214.76 / 2214.76 3205.90 / 3205.90 Output Total 850 / 850 1850 / 1850 Balance 1364.76 / 1364.76 1355.90 / 1355.90 Lab / Micro Data Result Diagrams: 11/29/21 07:40 Micro: Microbiology 11/29/21 07:45 Nasal Secretion SARS-CoV-2 Antigen (Rapid) - Final Physical Exam Const alert, oriented x3 and no apparent distress Resp normal respiratory effort and normal air movement Cardio regular rate, regular rhythm, S1 normal heart sound and S2 normal heart sound Narrative: lochia scant Uterus Palpation: uterus fundus firm and other OB fundus nontender Extremity no calf tenderness Neuro oriented x3 Assessment & Plan (1) (spontaneous vaginal delivery): PLAN: PPD#1 Rh positive Routine care
[2021-12-01] MEDS: Acetaminophen 500 MG Tablet 1000 MG PO (10:32)
--- NOTE | 2021-12-01 14:20 | CASEMGMT ---
Social Work Assessment Labor and Delivery Unit Patient Address:[address] [place] [address] [address], [place] [address] Phone number: [phone] Date of Referral: 11.30.2021 Time of Referral: 134 Referred By: Dr. Tej Foley Date of Intervention: 12.01.2021 Time of Intervention: 1210 Reason for Referral: Maternal history of depression and anxiety. FOB not involved nor acknowledged. History obtained from: Medical records and mother of baby (MOB) Piedad Pearl Household composition: MOB reports to have own apartment. Older son lives in the home with plan to take to this home. Denies safety concerns. Patient's parent/guardian status: MOB is a 21 year old single female, and the father of baby (FOB) is known. MOB reports the FOB is 32 and has 6 other children, so makes 7. MOB denies any safety concerns with the FOB, no history of violence, just prefers not to involve the FOB at this time. MOB reports the FOB has reached out since delivery and has indicated a desire to be in the baby's life. MOB reports was much the same way after oldest was born, as did not want to involved that child's father either. MOB's minor children include: Doug Boudreaux (April 2019), and baby girl Megan Pearl (Born [birth year]). Medical History: OUSMANE is G2, P1 to 2 after delivering Megan. care started at 7 weeks and regular thereafter. MOB reports has had heart issues for some time now, before even. Sees a design engineer marine equipment through [employer]. Maternal history of POTS, SVT, Covid in June 2021, and Chlamydia x2 in . Infant delivered at 39 weeks. weight 3385 grams. Apgars 8-9 at 1-5 minutes of life respectively. 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 No reported issues with reading, writing, or learning. 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 Child support for first child. Infant Supplies: Reports to have alll needed supplies to care for baby including a pack-n-play, clothing, diapers, wipes, breast pump, and car seat. Childcare/Caregiver(s): MOB and then will be looking for a daycare for when MOB returns to work. Transportation: MOB drives and denies any issues. Programs/Agencies Involved: Active with [facility] child [facility] director subsidy. Plans to reapply for food assistance. Has WIC. Working with [facility] once a week for son. Plans to continue with [facility]. NO other agency involvement reported. Children Services/Legal Issues: Denies. Behavioral Health Issues: Mental Health History: Reports history of depression and anxiety as a teen, but that feels okay now and has no worries. Denies history of depression or anxiety. Denies history of suicidal ideation, planning, intent, or attempts. No thoughts of harm to others reported. EDPS screen on 04.23.2021 was an 8 (below threshold for depression) and today rescreened with a score of 0. Substance Use History: Denies substance use history. Family History: Not discussed. Drug Screens: negative on 11.29.2021. No other testing noted. Family/Social Stressors: MOB's father has reportedly had 9 heart attacks and several bypass surgeries. MOB's mother reportedly was hospitalized at the beginning of this to get medications adjusted (noted in the C record). MOB reports the score of 8 on the [place] screen was likely due to MOB's best friend dying in a car accident. MOB reports to be doing better now and coping better. Limited involvement by the FOB. Limited finances, but reports [facility] worker is helping MOB get linked with appropriate services in the community. Support Systems:MOB's mom, dad, and sister. MOB reports the oldest's father does get the child for visits,, and the child paternal grandparents help regularly. Depression/Shaken Baby/Safe Sleeping: Reviewed safe sleeping, shaken baby, and mood and anxiety disorders. ASSESSMENT: Met with MOB in room. Introduced to self and social work role. MOB holding baby upon social work entering room. MOB cooperative during social work visit, talkative and sharing information though affect constricted. MOB reports was unplanned, but accepted. Reports to feel a meyer with baby. MOB reports to have supplies to care for baby at home, and to have support from family and friends if needed. MOB plans to have son continue to at [employer] while MOB is off on work, allowing MOB to have some time to get things done for the baby. MOB denies any concerns about mood or anxiety, but was educated to seek out help and support should symptoms arise. MOB noted feeding cues baby was exhibiting and made several comments that baby does not feed when put to breast, rather just lies there. MOB asked this va underwriter if could get a bottle, to see if this would help, acknowledging belief that breast milk is healthier, but had planned to do combination breastmilk and formula even before entering the hospital. Agreed to pass this request onto the nurse. MOB denies any concerns for home going. Interventions: Updated RN caring for MOB/baby regarding MOB's interest in a bottle. Provided packet on mood and xniety disorders, as well as [facility] resource packet. PLAN: MOB and baby will discharge home with support from family, as well as from [employer] worker already established prior to delivery. No other services requested or indicated. -MERCEDES Zamora, NEEL *This note was generated with Ning by [employer] dictation software. It may contain incorrect words, spelling, and punctuation that were not noted in review of the chart prior to signing*
[2021-12-01 15:01] VITALS: BP 102/57; PULSE 77; RESP 16; TEMP 36.6; O2SAT 97
== END 2021-12-01 15:45 | disposition home or self-care (01) | DRG 560 ==
PROVIDERS: Admitting Provider Obstetrics & Gynecology; Visit Provider Obstetrics & Gynecology
DX: O99.42 Diseases of the circulatory system complicating childbirth (principal); Z37.0 Single live birth; I47.1 Supraventricular tachycardia; Z91.19 Patient's noncompliance with other medical treatment and regimen; Z91.14 Patient's other noncompliance with medication regimen; Z87.891 Personal history of nicotine dependence; Z87.440 Personal history of urinary (tract) infections; O70.0 First degree perineal laceration during delivery; Z3A.39 39 weeks gestation of pregnancy
CPT/HCPCS: 59025; 59050; 80307; 82962; 84112; 85025; 86850; 86900; 86901; 87426; 87491; 87591; 99218; 99406; J7120; A4216; G0378; J2405

== ENCOUNTER → 2022-01-04 | Outpatient (CLI) | payer MEDICAID, SELFPAY | END | disposition home or self-care (01) | LOC: LABSPEC 01-05 16:32 | PROVIDERS: Visit Provider Obstetrics & Gynecology | DX: N76.0 Acute vaginitis (principal); Z11.3 Encounter for screening for infections with a predominantly sexual mode of transmission ==

== ENCOUNTER 2022-02-17 15:09 | Emergency (ER) | payer MEDICAID, SELFPAY ==
[2022-02-17 15:10] VITALS: BP 115/73; PULSE 88; RESP 16; TEMP 36.4; O2SAT 97; BMI 24.0
[2022-02-17 15:53] VITALS: BP 107/60; PULSE 88; RESP 16; O2SAT 98
--- NOTE | 2022-02-17 15:54 | CM.ED ---
Social Work Note Reason for Referral: No PCP SW reviewed chart, no PCP listed. SW in to speak with pt. Pt has guest present in room. Pt gave permission for this worker to speak to her in front of her guest. Pt confirms she has no PCP. SW provided pt with [facility] Healthcare Directory/PCP list. SW also provided pt with Where To Go When to Go Pamphlet. Yue Morelos PARTS CHASER, PULP PILER
--- NOTE | 2022-02-17 16:01 | EKG12_ITS ---
Test Reason : LOW BP Blood Pressure : / mmHG Vent. Rate : 068 BPM Atrial Rate : 068 BPM P-R Int : 182 ms QRS Dur : 094 ms QT Int : 386 ms P-R-T Axes : 043 074 040 degrees QTc Int : 410 ms Normal sinus rhythm with sinus arrhythmia Normal ECG Confirmed by RUSTAM GALE, ADDIE ([id number]), film editor MORENO SHANNON ([id number]) on 02/18/2022 9:45:30 AM Referred By: KADEEM Confirmed By:ADDIE EASTON MD
--- NOTE | 2022-02-17 16:02 | EDS_ITS ---
HPI History of Present Illness Chief Complaint: Fatigue Informant: patient Onset/Context/Timing Onset: Today Context: Gradual Onset Timing: Continuous Current Severity: Mild Maximum Severity: Mild Narrative Narrative: 21-year-old female history of SVT also history of prior anemia. Today was at [facility] having a preop evaluation because she is having cardiac ablation done on March 15. States she just felt fatigued and had a low blood pressure. Denies any headache or chest pain. Denies any shortness of breath. Denies abdominal pain. She denies any recent nausea, vomiting, diarrhea or fever. No dysuria. She had a child November 30 was a vaginal delivery. Had a menstrual period about a week ago. Prior similar symptoms: No Recent Illness/Hospitalization: No PFSH PFSH Medical History Anemia Chlamydia Costal chondritis COVID-19 Dysmenorrhea Endometrial cystoma of right ovary Family history of coronary artery disease Frequent UTI Gonorrhea Nicotine dependence Supraventricular tachycardia (04/2020) SVT (supraventricular tachycardia) Home Medications [id number] 1 mg tablet 1 tab PO DAILY 06/20/21 [History Last Taken 1 Day Ago ~11/28/21] Allergy/AdvReac Type Severity Reaction Status Date / Time No Known Allergies Allergy Verified 08/15/21 08:34 Family History Father CAD (coronary artery disease) coronary stents, CMP, Stent RCA Myocardial infarction, Onset Age: 34 Heart disease CA CMP Uncle Myocardial infarction CAD (coronary artery disease) Grandmother CAD (coronary artery disease) Myocardial infarction Social History number of children: 1 Smoking Status: Former smoker Smokeless tobacco user: other second hand exposure: No alcohol intake: current alcohol intake frequency: a few times a week ROS ROS ED ROS Narrative Fatigue. Review of Systems ROS Unobtainable: Denies due to encephalopathy Constitutional Constitutional ED: Denies chills or fever(s) Eyes Eyes: Denies blurry vision ENT ENT ED: Denies ear pain Cardiovascular Cardiovascular: Denies chest pain or palpitations Respiratory/Chest Respiratory/Chest: Denies cough or dyspnea Gastrointestinal Gastrointestinal: Denies abdominal pain, constipation, diarrhea, melena, nausea or vomiting Genitourinary Genitourinary ED: Denies dysuria or hematuria Musculoskeletal Musculoskeletal: Denies arthralgias Integumentary Denies abscess Neurologic Neurologic: Denies headache(s) Psychiatric Psychiatric: Denies anxiety Endocrine Endocrinology: Denies cold intolerance Hematologic/Lymphatic Hematologic/Lymphatic: Reports none Allergic/Immunologic Allergic/Immunologic ED: Denies mouth swelling or tongue swelling EXAM Physical Exam Narrative Exam Narrative: 21-year-old female no acute distress vital signs stable afebrile. Pulse ox 97% on room air no signs hypoxia. Exam normal. HEENT exam normal. Neck nontender. Lungs are clear. Heart regular rhythm no murmur. Rate about 80. Abdomen soft nontender. Moving all 4 extremities. Nontender no edema. Neurovascular intact. Neuro exam normal. Moist mucous membranes. Skin unremarkable. Const Vital Signs: 02/17/22 15:10 02/17/22 15:10 02/17/22 15:24 Temperature 97.6 F L 97.6 F L Temperature Source Temporal Temporal Pulse Rate 88 88 Respiratory Rate 16 16 Respiratory Pattern Normal Blood Pressure 115/73 115/73 Blood Pressure Mean 87 87 Pulse Ox 97 97 Oxygen Delivery Method Room Air Room Air 02/17/22 15:53 Temperature Temperature Source Pulse Rate 88 Respiratory Rate 16 Respiratory Pattern Blood Pressure 107/60 Blood Pressure Mean 75 Pulse Ox 98 Oxygen Delivery Method Room Air Positive well nourished and well developed; Negative for obese, cachectic, contractures or unkempt General Appearance ED: well developed and NAD; Negative for unkempt, cachectic, contractures, cyanotic or diaphoretic Nutritional Appearance: Negative for cachectic or obese HEENT Reports moist mucous membranes; Denies dry mucous membranes Negative for trauma Mouth ED: No dry mucous membranes Mouth: No dry mucous membranes Eyes PERRL and EOMs intact bilaterally General Eye ED: Negative for pale conjunctiva or scleral icterus Neck no lymphadenopathy, supple and no JVD General: Negative for tenderness Lymph Lymphatic: Negative for other Chest Wall inspection of chest normal and palpation of chest normal Chest: Negative for other Resp normal respiratory effort and clear to auscultation bilaterally Effort and Inspection: Negative for retractions Auscultation: Negative for rales, rhonchi or wheezes Cardio regular rate, regular rhythm, S1 normal heart sound, S2 normal heart sound and no murmurs Palpation: Negative for palpable S3 Rate: Negative for bradycardia Rhythm: Negative for abnormal rhythm GI normal to inspection, nondistended, normoactive bowel sounds, non-tender, non- distended and no masses Inspection: Negative for abdominal distention Auscultation: normoactive bowel sounds Palpation: soft; Negative for tender, guarding or mass Back/Spine no CVA tenderness General Back: Negative for CVA tenderness Cervical Spine: Negative for cervical spine tenderness Thoracic Spine / Upper Back: Negative for thoracic spinal tenderness Lumbar Spine / Lower Back: Negative for lumbar spinal tenderness Extremity normal to inspection General Extremety ED: Negative for edema or tenderness General Extremity: Negative for edema Neuro oriented x3, CN's II-XII intact bilaterally and no sensory deficits noted Sensorium / Orientation: alert; Negative for orientation impaired, lethargic or stuporous Motor Exam: strength 5/5 throughout Psych mental status grossly normal Appearance: Negative for unkempt Attitude: No agitated Mood & Affect: Negative for depressed, anxious or tearful Skin no rashes or lesions noted and no wounds Rashes: No rashes noted Trauma: Negative for abrasion Wounds: Negative for wounds noted MDM MDM MDM Narrative Medical decision making narrative: 21-year-old female history of SVT complaining of fatigue and hypotension earlier today which is since resolved. Exam is completely normal. She will be treated with IV fluids. Do screening labs. Repeat exam patient doing well at 4:40 PM. Exam unchanged. We went over her test results. She will be discharged home. Lab Data Attestation: I reviewed the patient's lab results. Lab results narrative: CBC White count is 6.4. H&H 11.3 and 34.9. She is anemic but along her baseline. Normal platelets. Electrolytes show a gap of 4 normal BUN and creatinine. Glucose of 95. EKG is unremarkable. Labs: Laboratory Results - last 24 hr 02/17/22 02/17/22 16:10 16:10 WBC 6.4 RBC 4.15 L Hgb 11.3 L Hct 34.9 L MCV 84.1 MCH 27.2 MCHC 32.4 RDW Std Deviation 43.0 RDW Coeff of [place] 14.3 Plt Count 194 MPV 11.4 Immature Gran % (Auto) 0.200 Neut % (Auto) 51.7 Lymph % (Auto) 33.5 [place] % (Auto) 9.7 Eos % (Auto) 4.4 Baso % (Auto) 0.5 Absolute Neuts (auto) 3.3 Absolute Lymphs (auto) 2.14 Nucleated RBC % 0 Sodium 140 Potassium 4.0 Chloride 108 H Carbon Dioxide 28.0 Anion Gap 4 L BUN 10 Creatinine 0.73 Estim Creat Clear Calc 105.27 Est GFR (MDRD) Af Amer 128 Est GFR (MDRD) Non-Af 106 BUN/Creatinine Ratio 13.6 Glucose 95 Calcium 9.2 Rhythm Strip Rhythm Strip: Sinus Rhythm Rate: 68 Ectopy: None EKG Initial EKG: Attestation: I personally reviewed and interpreted this EKG as follows: Interpretation: Sinus Rhythm and No Acute Injury Pattern Comments: Normal sinus rhythm rate of 68 no acute signs of CA or ischemia. Discharge Plan Triage Chief Complaint: Fatigue ED Provider: Best Diaz Dx/Rx/DC Orders Clinical Impression: Fatigue, Chronic anemia, History of supraventricular tachycardia Instructions: ED Weakness (Uncertain Cause) Prescriptions: No Action 1 mg Tablet 1 tab PO DAILY Primary Care Provider: Care Physician,No Primary Referrals: Dwain Jeffries MD [Med Staff - Safety Counselor] - 1 Week if not improving Care Physician,No Primary [Primary Care Provider] - Activity Restrictions/Additional Instructions: Plenty of fluids and rest. Follow-up with your primary care provider as needed. Disposition Disposition: Home, Self Care
[2022-02-17] MEDS: 0.9% Normal Saline 1,000 ML 1000 ML IV (16:11)
[2022-02-17 16:19] LABS: Absolute Lymphocyte Count 2.14 X10^3/uL (0.83-4.51); Absolute Neutrophil Count 3.3 X10^3/uL (2.0-7.7); Basophil# 0.03 X10^3/uL; Basophil% 0.5 % (0-1); Eosinophil# 0.28 X10^3/uL; Eosinophils% 4.4 % (0-5); Hematocrit 34.9 % (37-47); Hemoglobin 11.3 g/dL (12.0-15.0); Lymphocyte # 2.14 X10^3/ul (0.83-4.51); Lymphocyte % 33.5 % (19-41); Mean Corp Hgb Conc 32.4 g/dL (32-36); Mean Corpuscular Hgb 27.2 pg (27.0-32.0); Mean Corpuscular Volume 84.1 fL (81-99); Mean Platelet Vol. 11.4 fl (6.2-12.0); Monocyte# 0.62 X10^3/uL; Monocyte% 9.7 % (0-10); NRBC Flagged by Analyzer 0 % (0-5); Neutrophil # 3.31 X10^3/uL (2.7-7.7); Neutrophil % 51.7 % (47-70); Platelet Count 194 K/mm3 (150-450); RBC Distribution Width CV 14.3 % (11.6-14.6); Red Blood Count 4.15 M/mm3 (4.2-5.4); White Blood Count 6.4 K/mm3 (4.4-11.0)
[2022-02-17 16:30] LABS: Anion Gap 4 (5-15); BUN 10 mg/dL (7-18); BUN/Creat Ratio 13.6 RATIO (10-20); Calcium,Total 9.2 mg/dL (8.5-10.1); Chloride 108 mmol/L (98-107); Creatinine, Serum 0.73 mg/dL (0.55-1.02); EST Glomerular Filtration Rate 106 mL/min (>60); Est Glom Filt Rate - Afr Amer 128 mL/min (>60); Estimated Creatinine Clearance 105.27 ml/min; Glucose 95 mg/dL (74-106); Sodium Level 140 mmol/L (136-145)
[2022-02-17 16:45] VITALS: BP 110/72; PULSE 71; RESP 16; O2SAT 97
== END 2022-02-17 16:51 | disposition home or self-care (01) ==
PROVIDERS: Emergency Provider Emergency Medicine; Visit Provider Emergency Medicine
DX: D64.9 Anemia, unspecified (principal); Z87.891 Personal history of nicotine dependence; R53.81 Other malaise; Z86.16 Personal history of COVID-19
CPT/HCPCS: 80048; 85025; 93005; 99282; J7030; A4216

== ENCOUNTER → 2022-04-04 | Outpatient (CLI) | payer MEDICAID, SELFPAY ==
[2022-04-04 11:25] LABS: Absolute Lymphocyte Count 1.86 X10^3/uL (0.83-4.51); Basophil# 0.01 X10^3/uL; Basophil% 0.2 % (0-1); Eosinophil# 0.13 X10^3/uL; Eosinophils% 2.4 % (0-5); Hematocrit 35.7 % (37-47); Hemoglobin 11.8 g/dL (12.0-15.0); Lymphocyte # 1.86 X10^3/ul (0.83-4.51); Mean Corp Hgb Conc 33.1 g/dL (32-36); Mean Corpuscular Hgb 27.1 pg (27.0-32.0); Mean Corpuscular Volume 81.9 fL (81-99); Mean Platelet Vol. 11.9 fl (6.2-12.0); Monocyte# 0.47 X10^3/uL; Monocyte% 8.6 % (0-10); NRBC Flagged by Analyzer 0 % (0-5); Neutrophil # 2.99 X10^3/uL (2.7-7.7); Neutrophil % 54.6 % (47-70); Platelet Count 211 K/mm3 (150-450); RBC Distribution Width CV 14.1 % (11.6-14.6); RBC Distribution Width SD 41.9 fl (35.1-43.9); Red Blood Count 4.36 M/mm3 (4.2-5.4); White Blood Count 5.5 K/mm3 (4.4-11.0)
[2022-04-04 11:27] LABS: Erythrocyte Sedimentation Rate 26 mm/hr (0-30)
[2022-04-04 12:15] LABS: ALB/GLOB Ratio 0.9 RATIO (0.9-2.4); AST(SGOT) 15 U/L (15-37); Alanine Aminotransfer ALT/SGPT 16 U/L (13-56); Albumin, Serum 3.6 g/dL (3.2-5.0); Alkaline Phosphatase 89 U/L (45-117); Anion Gap 7 (5-15); BUN 12 mg/dL (7-18); BUN/Creat Ratio 18.9 RATIO (10-20); Calcium,Total 9.4 mg/dL (8.5-10.1); Chloride 109 mmol/L (98-107); Creatinine, Serum 0.64 mg/dL (0.55-1.02); EST Glomerular Filtration Rate 125 mL/min (>60); Est Glom Filt Rate - Afr Amer 151 mL/min (>60); Globulin 4.2 g/dL (2.2-4.2); Glucose 85 mg/dL (74-106); Potassium 4.1 mmol/L (3.5-5.1); Protein, Total 7.8 g/dL (6.4-8.2); Sodium Level 141 mmol/L (136-145)
[2022-04-05 13:08] LABS: Anti-Centromere B Ab <0.2 AI (0.0-0.9); Anti-Chromatin <0.2 AI (0.0-0.9); Anti-Jo <0.2 AI (0.0-0.9); Anti-Scleroderma-70 AB <0.2 AI (0.0-0.9); RNP Ab <0.2 AI (0.0-0.9); SJOGREN'S Anti-SS-A test < 0.2 AI (0.0-0.9); SJOGREN'S Anti-SS-B test 0.2 AI (0.0-0.9); Smith Ab <0.2 AI (0.0-0.9)
[2022-04-05 15:08] LABS: Cytoplasmic Ab (C-ANCA) <1:20 titer (Neg:<1:20); Endomysial Antibody IgA Negative (Negative); Immunoglobulin A 212 mg/dL (87-352)
[2022-04-07 12:51] LABS: Perinuclear Ab (P-ANCA) <1:20 titer (Neg:<1:20); t-Transglutaminase IgA <2 U/mL (0-3)
[2022-04-07 13:26] LABS: Anti-dsDNA Ab 2 IU/mL (0-9)
== END | disposition home or self-care (01) ==
LOC: LAB 10:24
PROVIDERS: Visit Provider Nurse Practitioner Adult Health
DX: R10.9 Unspecified abdominal pain (principal)
CPT/HCPCS: 36415; 80053; 82784; 83516; 85025; 85652; 86140; 86225; 86235; 86255; 86256

== ENCOUNTER → 2022-04-12 | Emergency (ER) | payer MEDICAID, SELFPAY ==
--- NOTE | 2022-04-12 13:00 | EKG12_ITS ---
Test Reason : CP Blood Pressure : / mmHG Vent. Rate : 100 BPM Atrial Rate : 100 BPM P-R Int : 142 ms QRS Dur : 080 ms QT Int : 332 ms P-R-T Axes : 052 074 029 degrees QTc Int : 428 ms Normal sinus rhythm Normal ECG Confirmed by RUSTAM GALE, ADDIE ([id number]), news editor MORENO SHANNON ([id number]) on 04/14/2022 12:58:34 PM Referred By: [place]/CHELA Confirmed By:ADDIE EASTON MD
[2022-04-12 14:03] VITALS: BP 123/77; PULSE 113; RESP 16; TEMP 36.9; O2SAT 100; BMI 23.3
== END | disposition home or self-care (01) ==
LOC: ED 06-02 13:27
DX: Z00.00 Encounter for general adult medical examination without abnormal findings (principal)
CPT/HCPCS: 93005

== ENCOUNTER → 2022-04-27 | Outpatient (CLI) | payer MEDICAID, SELFPAY ==
--- NOTE | 2022-04-27 14:12 | US_ITS ---
STUDY: ULTRASOUND OF THE FEMALE PELVIS - COMPLETE REASON FOR EXAM: Female, 22 years old. CHRONIC RLQ PAIN -- HX OF OV CYSTS -- BEEN ON PERIOD CONTINUOUSLY SINCE 03/10/22 -- PAIN WITH INTERCOURSE TECHNIQUE: Endovaginal. Transvaginal US was obtained to better visualized the ovaries. COMPARISON: 11/06/2019. FINDINGS: The uterus is anteverted and is in a midline position. The uterus measures 7.4 x 5.5 cm. There is a Nabothian cyst of the cervix. The endometrium measures 10 mm in thickness, and is hyperechoic. There is no demonstrated endometrial mass. There is no demonstrated myometrial mass. I.U.D. - The patient does not have an I.U.D. The right ovary is visualized. The right ovary measures 3.4 cm. There is no right ovarian cyst or ovarian mass. There is no visualized right adnexal mass or complex lesion. There is normal arterial and normal venous vascularity. The left ovary is visualized. The left ovary measures 3.1 cm. There is no left ovarian cyst or ovarian mass. There is no visualized left adnexal mass or complex lesion. There is normal arterial and normal venous vascularity. There is no fluid in the cul-de-sac. Unremarkable urinary bladder 124. US/Pelvic (Non ) IMPRESSION: There are Nabothian cysts of the cervix. Electronically Signed: Ant Moran MD at 15:45 EDT ,
== END | disposition home or self-care (01) ==
LOC: US 14:11
PROVIDERS: Referring Provider Nurse Practitioner Adult Health; Visit Provider Nurse Practitioner Adult Health
DX: R10.9 Unspecified abdominal pain (principal); R10.2 Pelvic and perineal pain
CPT/HCPCS: 76856; 93976

== ENCOUNTER → 2022-05-02 | Outpatient (CLI) | payer MEDICAID, SELFPAY ==
--- NOTE | 2022-05-02 07:36 | US_ITS ---
STUDY: ABDOMINAL ULTRASOUND REASON FOR EXAM: Female, 22 years old. RLQ pain/pelvic pain TECHNIQUE: Transabdominal ultrasound was performed with real-time and static gil scale imaging. TECHNICAL QUALITY: Adequate. COMPARISON: None. FINDINGS: Liver: The liver measures 16.9 cm. There is normal echogenicity of the liver. The bile ducts are within normal limits. There is hepatic color flow. The direction of portal flow is hepatopetal. There is no demonstrated mass lesion. Gallbladder: Normal distended gallbladder. The gallbladder wall measures 2 mm. There is a negative sonographic Dominguez''s sign. There is no pericholecystic fluid. There are no gallstones. Common Bile Duct (C.B.D.): The common bile duct measures 4 mm. Pancreas: Normal size of the head, body and tail of the pancreas. There is normal echogenicity of the pancreas. There is no demonstrated pancreatic mass or cyst. Spleen: Normal size of the spleen. The spleen measures 10.4 cm x 4.2 cm x 3.9 cm. Right Kidney: Normal size of the right kidney. The right kidney measures 11.9 cm x 4 cm x 4.7 cm. Normal renal cortex. The right cortex measures 1.1 cm. There is no demonstrated renal mass or cyst. There is no right hydronephrosis. Left Kidney: Normal size of the left kidney. The left kidney measures 11 cm x 5.4 cm x 5.8 cm. Normal renal cortex. The left cortex measures 1.9 cm. There is no demonstrated renal mass or cyst. There is no left hydronephrosis. Aorta: Unremarkable I.V.C.: The IVC is patent. There is no ascites. US/Abdomen Complete IMPRESSION: Normal abdominal ultrasound examination. Electronically Signed: Mark Mcallister MD at 15:26 EDT ,
== END | disposition home or self-care (01) ==
LOC: US 07:35
PROVIDERS: Referring Provider Nurse Practitioner Adult Health; Visit Provider Nurse Practitioner Adult Health
DX: R10.9 Unspecified abdominal pain (principal)
CPT/HCPCS: 76700

== ENCOUNTER → 2022-05-25 | Outpatient (CLI) | payer MEDICAID, SELFPAY ==
--- NOTE | 2022-05-25 18:04 | CT_ITS ---
STUDY: CT Abdomen And Pelvis W/ Contrast Injection 05/25/2022 6:28 PM REASON FOR EXAM: Female, 22 years old. ABDOMINAL PAIN RLQ pain, diarrhea -- oral and iv TECHNIQUE: Transaxial images were obtained with oral contrast, and with Oral and amp; IV Readi-CAT and amp; 100mL Isovue-370 intravenous contrast. Individualized dose optimization techniques were used for this CT. COMPARISON: None. FINDINGS: The visualized lung bases are unremarkable. The visualized portions of the heart are within normal limits. Unremarkable liver. Unremarkable gallbladder and extrahepatic biliary system. Unremarkable spleen. Unremarkable pancreas. Unremarkable bilateral adrenal glands. No acute findings of the right kidney. No acute findings of the left kidney. Unremarkable visualized stomach. Unremarkable small intestine. Unremarkable colon. The appendix is visualized and appears unremarkable. There are no acute findings of the abdominal aorta. Unremarkable inferior vena cava. Subcentimeter mesenteric lymph nodes. Unremarkable urinary bladder. 37mm hypodense lesion of the right ovary consistent for a cyst. No follow-up required. There is an umbilical hernia containing fat. Unremarkable osseous structures. CT/Abdomen/Pelvis WITH Contrast IMPRESSION: (NOT LISTED IN ORDER OF SIGNIFICANCE) There are no acute findings. The appendix is visualized and appears unremarkable. Other findings as above. Electronically Signed: Ant Moran MD at 18:30 [facility] ,
== END | disposition home or self-care (01) ==
LOC: CT 18:02
PROVIDERS: Referring Provider Nurse Practitioner Adult Health; Visit Provider Nurse Practitioner Adult Health
DX: R53.83 Other fatigue (principal); R10.31 Right lower quadrant pain; R10.2 Pelvic and perineal pain; R19.7 Diarrhea, unspecified
CPT/HCPCS: 36415; 74177; 82306; 82607; 84443; 85027; Q9967

== ENCOUNTER → 2022-05-25 | Outpatient (CLI) | payer MEDICAID, SELFPAY ==
[2022-05-25 16:55] LABS: Hematocrit 36.3 % (37-47); Hemoglobin 11.3 g/dL (12.0-15.0); Mean Corp Hgb Conc 31.1 g/dL (32-36); Mean Corpuscular Hgb 25.4 pg (27.0-32.0); Mean Corpuscular Volume 81.6 fL (81-99); Mean Platelet Vol. 11.8 fl (6.2-12.0); Platelet Count 221 K/mm3 (150-450); RBC Distribution Width CV 15.7 % (11.6-14.6); RBC Distribution Width SD 46.6 fl (35.1-43.9); Red Blood Count 4.45 M/mm3 (4.2-5.4); White Blood Count 7.9 K/mm3 (4.4-11.0)
[2022-05-25 17:29] LABS: Vitamin B12 324 pg/mL (211-911); Vitamin D,25 Hydroxy 12.8 ng/mL
[2022-05-25 17:39] LABS: Thyroid Stim Hormone (TSH) 0.11 uIU/mL (0.358-3.74)
== END | disposition home or self-care (01) ==
LOC: WOBLAB 16:16
PROVIDERS: Visit Provider Student in an Organized Health Care Education/Training Program
DX: R53.83 Other fatigue (principal)
CPT/HCPCS: 84443; 85027; 36415; 82607; 82306

== ENCOUNTER → 2022-10-18 | Outpatient (CLI) | payer MEDICAID, SELFPAY ==
[2022-10-18 16:58] LABS: HIV - WCH Non-Reactive (Nonreactive); Syphilis Antibodies Non-reactive
[2022-10-20 08:12] LABS: HEPATITIS B SURFACE AG Negative (Negative); Hep B Surface Antibodies Reactive (.); Hepatitis B Core Ab Total Negative (Negative)
== END | disposition home or self-care (01) ==
LOC: WOBLAB 15:37
PROVIDERS: Visit Provider Obstetrics & Gynecology
DX: R30.0 Dysuria (principal); Z11.3 Encounter for screening for infections with a predominantly sexual mode of transmission
CPT/HCPCS: 36415; 86703; 86704; 86705; 86706; 86707; 86780; 86803; 87086; 87088; 87340; 87350